=== PATIENT | male | born 1960 | race Caucasian/White ===

== ENCOUNTER 2017-11-18 14:26 | Inpatient (IN) | payer MEDICAID ==
[~2017-11-18] VITALS: Ht 172.7 cm; Wt 171.0 kg
[~2017-11-18 14:26] MED LIST: BACT800T5 PO; CLON1 PO; HYDR-3533 PO; LISI-515 PO; METH10TA PO; PRED20 PO
[2017-11-18 14:41] VITALS: BP 163/80; PULSE 107; RESP 22; O2SAT 96
[2017-11-18] MEDS ORDERED: METH10TA PO (14:44)
--- NOTE | 2017-11-18 15:08 | PD ---
HPI Chief Complaint: Skin Problem Time Seen by Provider: 14:43 Travel History International Travel<30 days: No Contact w/Intl Traveler<30days: No Traveled to known affect area: No History of Present Illness HPI 56yo M presented to the ED for cellulitis of bilateral LE. Pt states that his cellulitis is chronic, with L leg starting about 1 year ago and the R starting several months ago. Pt states the infection worsened a week ago with weeping and increased tenderness. He then started taking antibiotics that his friend had left over from a previous skin infection. He does not know the name of the antibiotic. Pt wraps his wounds daily with Neosporin and gauze. Pt has a significant past medical history of PAD, spinal stenosis, hypertension and arthritis. He denies fevers, chest pain, weakness, myalgias, SOB, nausea or vomiting. Modifying Factors: None Associated Signs & Symptoms: Increased leg swelling worse on the left than the right. Risk Factors: Has been taking antibiotics for a week PFSH Past Medical History Arthritis: Yes (B/L KNEES OA) Asthma: No Blood Disorders: No Heart Rhythm Problems: No Cancer: Yes (skin) Cardiovascular Problems: Yes (PVD LE) High Cholesterol: No Chest Pain: No Congestive Heart Failure: No COPD: No Diminished Hearing: No Endocrine: No Genitourinary: No Hypertension: Yes Immune Disorder: No Musculoskeletal: Yes Neurologic: No Psychiatric: No Reproductive: No Respiratory: No Sleep Apnea: No ?: Not Past Surgical History Body Medical Devices: CRUTCHES Oral Surgery: Yes (TONSILLECTOMY) Tonsillectomy: Yes Other Surgery: Yes Social History Alcohol Use: No (FORMER) Tobacco Use: Yes (CHEW) Substance Use: No Allergies-Medications (Allergen,Severity, Reaction): Coded Allergies: No Known Allergies (Unverified Adverse Reaction, Unknown, 11/18/17) Reported Meds & Prescriptions Reported Meds & Active Scripts Active Reported Methadone (Methadone HCl) 10 Mg Tab 20 Mg PO TID Klonopin (Clonazepam) 1 Mg Tab 1 Mg PO DAILY Prednisone 20 Mg Tab 20 Mg PO DAILY Lisinopril 20 Mg Tab 20 Mg PO DAILY Review of Systems Except as stated in HPI: all other systems reviewed are Neg Cardiovascular: Positive: Edema Skin: Positive Lesions Physical Exam Narrative GENERAL: 56yo W/M obese, well-developed and pleasant. Alert and oriented x3. SKIN: Warm and dry. Bilateral LE are edematous and erythematous to the knee on the R and into the medial thigh on the R. Tenderness to touch. Significant bulla more pronounced on the left. HEAD: Atraumatic. Normocephalic. ENT: No nasal bleeding or discharge. Black growth in R nostril, previously diagnosed as carcinoma of the skin. NECK: Trachea midline. No JVD. CARDIOVASCULAR: Regular rate and rhythm. RESPIRATORY: No accessory muscle use. Clear to auscultation. Breath sounds equal bilaterally. GASTROINTESTINAL: Abdomen soft, non-tender, nondistended. Hepatic and splenic margins not palpable. Increased vasculature marking on anterior abdomen. MUSCULOSKELETAL: Extremities without clubbing or cyanosis. No obvious deformities. NEUROLOGICAL: Awake and alert. No obvious cranial nerve deficits. Motor grossly within normal limits. Normal speech. PSYCHIATRIC: Appropriate mood and affect; insight and judgment normal. Data Data Last Documented VS Vital Signs Date Time Temp Pulse Resp B/P (MAP) Pulse Ox O2 Delivery O2 Flow Rate FiO2 11/18/17 15:23 98 Room Air 11/18/17 15:23 22 11/18/17 14:41 107 Orders Orders Sepsis Workup Initiated (11/18/17 ) Complete Blood Count With Diff (11/18/17 15:00) Comprehensive Metabolic Panel (11/18/17 15:00) Lactic Acid Sepsis Protocol (11/18/17 15:00) Blood Culture (11/18/17 15:00) Chest, Single Ap (11/18/17 15:00) Blood Glucose (11/18/17 15:00) Ecg Monitoring (11/18/17 15:00) Iv Access Insert/Monitor (11/18/17 15:00) Oximetry (11/18/17 15:00) Oxygen Administration (11/18/17 15:00) Ckmb (Isoenzyme) Profile (11/18/17 15:00) Troponin I (11/18/17 15:00) B-Type Natriuretic Peptide (11/18/17 15:00) Prothrombin Time / Inr (Pt) (11/18/17 15:00) Act Partial Throm Time (Ptt) (11/18/17 15:00) Us Leg Venous Doppler Bilat (11/18/17 15:00) CKMB (11/18/17 15:02) CKMB% (11/18/17 15:02) Electrocardiogram (11/18/17 14:46) Piperacil-Tazo 4.5 Gm Premix (Zosyn 4.5 (11/18/17 16:47) Vancomycin Inj (Vancomycin Inj) (11/18/17 16:47) Admit Order (Ed Use Only) (11/18/17 17:14) Labs Laboratory Tests Test 11/18/17 15:02 White Blood Count 13.4 TH/MM3 Red Blood Count 4.15 MIL/MM3 Hemoglobin 12.1 GM/DL Hematocrit 36.6 % Mean Corpuscular Volume 88.1 FL Mean Corpuscular Hemoglobin 29.1 PG Mean Corpuscular Hemoglobin Concent 33.0 % Red Cell Distribution Width 14.3 % Platelet Count 368 TH/MM3 Mean Platelet Volume 7.8 FL Neutrophils (%) (Auto) 84.4 % Lymphocytes (%) (Auto) 11.0 % Monocytes (%) (Auto) 2.7 % Eosinophils (%) (Auto) 0.9 % Basophils (%) (Auto) 1.0 % Neutrophils # (Auto) 11.3 TH/MM3 Lymphocytes # (Auto) 1.5 TH/MM3 Monocytes # (Auto) 0.4 TH/MM3 Eosinophils # (Auto) 0.1 TH/MM3 Basophils # (Auto) 0.1 TH/MM3 CBC Comment AUTO DIFF Differential Comment AUTO DIFF CONFIRMED Prothrombin Time 10.0 SEC Prothromb Time International Ratio 1.0 RATIO Activated Partial Thromboplast Time 23.5 SEC Blood Urea Nitrogen 16 MG/DL Creatinine 1.20 MG/DL Random Glucose 151 MG/DL Total Protein 7.6 GM/DL Albumin 2.7 GM/DL Calcium Level 8.6 MG/DL Alkaline Phosphatase 88 U/L Aspartate Amino Transf (AST/SGOT) 50 U/L Alanine Aminotransferase (ALT/SGPT) 28 U/L Total Bilirubin 0.4 MG/DL Sodium Level 135 MEQ/L Potassium Level 6.3 MEQ/L Chloride Level 102 MEQ/L Carbon Dioxide Level 24.9 MEQ/L Anion Gap 8 MEQ/L Estimat Glomerular Filtration Rate 63 ML/MIN Lactic Acid Level 3.3 mmol/L Total Creatine Kinase 166 U/L Creatine Kinase MB 1.0 NG/ML Troponin I LESS THAN 0.02 NG/ML B-Type Natriuretic Peptide 144 PG/ML MDM Medical Decision Making Medical Screen Exam Complete: Yes Emergency Medical Condition: Yes Medical Record Reviewed: Yes Interpretation(s) Laboratory Tests Test 11/18/17 15:02 White Blood Count 13.4 TH/MM3 (4.0-11.0) Red Blood Count 4.15 MIL/MM3 (4.50-5.90) Hemoglobin 12.1 GM/DL (13.0-17.0) Hematocrit 36.6 % (39.0-51.0) Neutrophils (%) (Auto) 84.4 % (16.0-70.0) Neutrophils # (Auto) 11.3 TH/MM3 (1.8-7.7) Activated Partial Thromboplast Time 23.5 SEC (24.3-30.1) Random Glucose 151 MG/DL (74-106) Albumin 2.7 GM/DL (3.4-5.0) Aspartate Amino Transf (AST/SGOT) 50 U/L (15-37) Sodium Level 135 MEQ/L (136-145) Potassium Level 6.3 MEQ/L (3.5-5.1) Estimat Glomerular Filtration Rate 63 ML/MIN (>89) Lactic Acid Level 3.3 mmol/L (0.4-2.0) Troponin I LESS THAN 0.02 NG/ML B-Type Natriuretic Peptide 144 PG/ML (0-100) Last 24 hours Impressions Lower Extremity Ultrasound 11/18/17 1500 Signed Impressions: Service Date/Time: Saturday, November 18, 2017 15:34 - CONCLUSION: Unremarkable exam with no evidence of deep venous spondylosis. Sahil Sanchez MD Chest X-Ray 11/18/17 1500 Signed Impressions: Service Date/Time: Saturday, November 18, 2017 15:07 - CONCLUSION: No acute disease. Sahil Sanchez MD Differential Diagnosis Cellulitis versus DVT versus CHF Narrative Course Lab work shows significant leukocytosis and lactate elevation is concerning for cellulitis. IV antibiotics were initiated after cultures are drawn. Chest x- ray did not show any signs of acute pulmonary processes. Ultrasound shows no signs of DVT. Case is discussed with Dr. Franco for admission. Diagnosis Primary Impression: Lower extremity cellulitis Admitting Information Admitting Physician Requests: Admit Tonie Darling MD Nov 18, 2017 15:08
--- NOTE | 2017-11-18 15:19 | RADRPT ---
EXAM DATE/TIME: 11/18/2017 15:07 [facility] COMPARISON: No previous studies available for comparison. INDICATIONS : Shortness of breath. Lower extremity swelling. MEDICAL HISTORY : Hypertension. SURGICAL HISTORY : None. ENCOUNTER: Initial ACUITY: 1 day PAIN SCORE: 0/10 LOCATION: Bilateral chest FINDINGS: A single view of the chest demonstrates the lungs to be symmetrically aerated without evidence of mas s, infiltrate or effusion. The cardiomediastinal contours are unremarkable. Osseous structures are intact. CONCLUSION: No acute disease. Sahil Sanchez MD on November 18, 2017 at 15:16 Board Certified Radiologist. This report was verified electronically.
[2017-11-18 15:23] VITALS: RESP 22; O2SAT 98
[2017-11-18 15:52] LABS: AUTOMATED NEUTROPHIL # 11.3 TH/MM3 (1.8-7.7); BASOPHIL # 0.1 TH/MM3 (0-0.2); EOSINOPHIL # 0.1 TH/MM3 (0-0.4); EOSINOPHIL % 0.9 % (0.0-4.0); HEMATOCRIT 36.6 % (39.0-51.0); HEMOGLOBIN 12.1 GM/DL (13.0-17.0); LYMPHOCYTE # 1.5 TH/MM3 (1.0-4.8); MEAN CELL VOLUME 88.1 FL (80.0-100.0); MEAN CORPUSCULAR HEMOGLOBIN 29.1 PG (27.0-34.0); MEAN PLATELET VOLUME 7.8 FL (7.0-11.0); MONO % 2.7 % (0.0-8.0); MONOCYTE # 0.4 TH/MM3 (0-0.9); NEUT % 84.4 % (16.0-70.0); PLATELET COUNT 368 TH/MM3 (150-450); RED BLOOD COUNT 4.15 MIL/MM3 (4.50-5.90); RED CELL DISTRIBUTION WIDTH 14.3 % (11.6-17.2); WHITE BLOOD COUNT 13.4 TH/MM3 (4.0-11.0)
--- NOTE | 2017-11-18 16:09 | RADRPT ---
EXAM DATE/TIME: 11/18/2017 15:34 [facility] COMPARISON: No previous studies available for comparison. INDICATIONS : Bilateral leg swelling. MEDICAL HISTORY : Hypertension. Chronic LE edema/cellulitis. Arthritis. Skin cancer. Osteoarthritis. Peripheral vascu lar disease. SURGICAL HISTORY : Tonsillectomy. ENCOUNTER: Initial ACUITY: >1 year PAIN SCORE: 5/10 LOCATION: Bilateral legs. TECHNIQUE: Venous ultrasound of the left and right leg was performed from the inguinal ligament to the proximal calf. Real-time, color Doppler and spectral tracing, compression and augmentation techniques were us ed. FINDINGS: RIGHT LEG: There is normal compressibility of the deep venous system from the inguinal region to the proximal ca lf. No echogenic clot is seen in the lumen of the common femoral, femoral, popliteal, and posterior tibial veins. There is a normal response of the venous system to proximal and distal augmentation an d respiration. LEFT LEG: There is normal compressibility of the deep venous system from the inguinal region to the proximal ca lf. No echogenic clot is seen in the lumen of the common femoral, femoral, popliteal, and posterior tibial veins. There is a normal response of the venous system to proximal and distal augmentation an d respiration. CONCLUSION: Unremarkable exam with no evidence of deep venous spondylosis. Sahil Sanchez MD on November 18, 2017 at 16:05 Board Certified Radiologist. This report was verified electronically.
[2017-11-18 16:15] LABS: ALBUMIN 2.7 GM/DL (3.4-5.0); ALKALINE PHOSPHATASE 88 U/L (45-117); ALT (GPT) 28 U/L (12-78); AST (GOT) 50 U/L (15-37); BICARBONATE 24.9 MEQ/L (21.0-32.0); BLOOD UREA NITROGEN 16 MG/DL (7-18); CALCIUM 8.6 MG/DL (8.5-10.1); CHLORIDE 102 MEQ/L (98-107); GLOMERULAR FILTRATION RATE 63 ML/MIN (>89); GLUCOSE,RANDOM 151 MG/DL (74-106); LACTIC ACID SEPSIS PROTOCOL 3.3 mmol/L (0.4-2.0); SODIUM (NA) 135 MEQ/L (136-145); TOTAL BILIRUBIN ADULT 0.4 MG/DL (0.2-1.0); TOTAL PROTEIN 7.6 GM/DL (6.4-8.2); TROPONIN I LESS THAN 0.02 NG/ML (0.02-0.05)
[2017-11-18] MEDS ORDERED: VANCOMYCIN INJ 1,000 MG in SODIUM CHLOR 0.9% 250 ML INJ 250 ML IV STA (16:47)
[2017-11-18] MEDS ORDERED: PIPERACIL-TAZO 4.5 GM PREMIX 100 ML IV STA (16:47)
--- NOTE | 2017-11-18 18:21 | HHI.HP ---
[facility] Service Family Medicine Primary Care Physician Yossi Forrester, DO Admission Diagnosis left leg cellulitis/sepsis Diagnoses: International Travel<30 Days: No Contact w/Intl Traveler<30days: No Known Affected Area: No History of Present Illness Patient is a 56 year old male with a past medical history of hypertension, chronic venous stasis in his lower extremities, and knee osteoarthritis that presents to the [facility] ED for evaluation of chronic bilateral lower extremity cellulitis. Patient states that in the last 1 week, his leg started hurting to the point that he could hardly get up from the couch to use the bathroom. His PCP is Dr. Forrester who he last saw last month. At that time, he was told to apply Neosporin with dressing changes twice a day which did not improve the pain or swelling in his legs. He is experiencing excruciating sharp, burning, and sitting in pain that he rates 10/10. He even took antibiotics that a friend had left over from a previous skin infection but that did not help. He came into the ED to be evaluated because he could not bear the pain any longer. He does not have a history of diabetes. His insurance did not approve follow-up with the wound care clinic. (Shannon Quinones MD R2) Review of Systems Constitutional: COMPLAINS OF: Fever (probably), Chills, DENIES: Fatigue, Dizziness, Change in appetite, Night Sweats Eyes: DENIES: Blurred vision Ears, nose, mouth, throat: DENIES: Nasal discharge, Throat pain, Sinus Pain Respiratory: DENIES: Cough, Shortness of breath Cardiovascular: DENIES: Chest pain, Palpitations Gastrointestinal: DENIES: Abdominal pain, Bloody stools, Diarrhea, Nausea, Vomiting, Difficulty Swallowing Genitourinary: DENIES: Urinary frequency, Dysuria Integumentary: DENIES: Pruritus Neurologic: DENIES: Headache (for the past few days but resolved) Psychiatric: DENIES: Anxiety, Confusion, Depression, Suicidal Ideation, Homicidal Ideation (Shannon Quinones MD R2) Past Family Social History Past Medical History Spinal stenosis Arthritis - in the knees bilaterally Hypertension Carpal tunnel Poor circulation in lower legs Past Surgical History Tonsillectomy at 17 years of age Reported Medications Reported Meds & Active Scripts Active Reported Methadone (Methadone HCl) 10 Mg Tab 20 Mg PO TID Klonopin (Clonazepam) 1 Mg Tab 1 Mg PO DAILY Prednisone 20 Mg Tab 20 Mg PO DAILY Lisinopril 20 Mg Tab 20 Mg PO DAILY (Shannon Quinones MD R2) Allergies: Coded Allergies: No Known Allergies (Unverified Adverse Reaction, Unknown, 11/18/17) Family History Mother of COPD Father was healthy, of an infection due to surgery Social History 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 Lives in [place], lives with ex-, a female roommate, and older son Non-smoker No alcohol use No illicit drugs Pt chews tobacco (Shannon Quinones MD R2) Physical Exam Vital Signs Vital Signs Date Time Temp Pulse Resp B/P (MAP) Pulse Ox O2 Delivery O2 Flow Rate FiO2 11/18/17 15:23 98 Room Air 11/18/17 15:23 22 98 Room Air 11/18/17 14:41 107 22 163/80 (107) 96 Room Air Physical Exam GENERAL: This is a well-nourished, well-developed patient, morbidly obese patient in no physical distress, moaning constantly in the exam room SKIN: Obvious swelling of bilateral lower extremities, worse on left with erythema, brawny induration, and tenderness to palpation in the middle third of the lower leg. 5 x 7 cm ulcer on the lateral posterior area of the left leg. Superficial ulcer, 5 cm in widest dimension on the posterior medial right leg. Bullae formation filled with fluid on the left leg. Drainage noted oozing from both ulcers, worse on the left. Healed 0.4 cm ulcer with black scarring observed in the mid-medial left leg. Dry skin noted on feet and toes. HEAD: Atraumatic. Normocephalic. No temporal or scalp tenderness. EYES: Pupils equal round and reactive. Extraocular motions intact. No scleral icterus. No injection or drainage. ENT: Black, 0.3cm, cauliflower lesion in the right nostril, consistent with SCC of the skin. Throat without erythema, tonsillar hypertrophy or exudate. Uvula midline. Airway patent. NECK: Trachea midline. No JVD. Supple, nontender, no meningeal signs. CARDIOVASCULAR: Regular rate and rhythm without murmurs, gallops, or rubs. Palpable dorsalis pedis pulses bilaterally RESPIRATORY: Clear to auscultation. Breath sounds equal bilaterally. No wheezes , rales, or rhonchi. GASTROINTESTINAL: Abdomen soft, obese, non-tender, nondistended. No guarding. MUSCULOSKELETAL: Extremities without clubbing, cyanosis, or edema. No joint tenderness, effusion, or edema noted. No calf tenderness. Negative Homans sign bilaterally. NEUROLOGICAL: Awake and alert. Cranial nerves II through XII intact. Motor and sensory grossly within normal limits. Five out of 5 muscle strength in bilateral upper and lower extremities. Normal speech. Laboratory Laboratory Tests Test 11/18/17 15:02 White Blood Count 13.4 Red Blood Count 4.15 Hemoglobin 12.1 Hematocrit 36.6 Mean Corpuscular Volume 88.1 Mean Corpuscular Hemoglobin 29.1 Mean Corpuscular Hemoglobin Concent 33.0 Red Cell Distribution Width 14.3 Platelet Count 368 Mean Platelet Volume 7.8 Neutrophils (%) (Auto) 84.4 Lymphocytes (%) (Auto) 11.0 Monocytes (%) (Auto) 2.7 Eosinophils (%) (Auto) 0.9 Basophils (%) (Auto) 1.0 Neutrophils # (Auto) 11.3 Lymphocytes # (Auto) 1.5 Monocytes # (Auto) 0.4 Eosinophils # (Auto) 0.1 Basophils # (Auto) 0.1 CBC Comment AUTO DIFF Differential Comment AUTO DIFF CONFIRMED Prothrombin Time 10.0 Prothromb Time International Ratio 1.0 Activated Partial Thromboplast Time 23.5 Blood Urea Nitrogen 16 Creatinine 1.20 Random Glucose 151 Total Protein 7.6 Albumin 2.7 Calcium Level 8.6 Alkaline Phosphatase 88 Aspartate Amino Transf (AST/SGOT) 50 Alanine Aminotransferase (ALT/SGPT) 28 Total Bilirubin 0.4 Sodium Level 135 Potassium Level 6.3 Chloride Level 102 Carbon Dioxide Level 24.9 Anion Gap 8 Estimat Glomerular Filtration Rate 63 Lactic Acid Level 3.3 Total Creatine Kinase 166 Creatine Kinase MB 1.0 Troponin I LESS THAN 0.02 B-Type Natriuretic Peptide 144 Date/Time Source Procedure Growth Status 11/18/17 15:12 Blood Peripheral Aerobic Blood Culture Pending Received 11/18/17 15:12 Blood Peripheral Anaerobic Blood Culture Pending Received (RodrioShannon MD R2) Result Diagram: 11/18/17 1502 11/18/17 1502 Imaging Last Impressions Lower Extremity Ultrasound 11/18/17 1500 Signed Impressions: Service Date/Time: Saturday, November 18, 2017 15:34 - CONCLUSION: Unremarkable exam with no evidence of deep venous spondylosis. Sahil Sanchez MD Chest X-Ray 11/18/17 1500 Signed Impressions: Service Date/Time: Saturday, November 18, 2017 15:07 - CONCLUSION: No acute disease. Sahil Sanchez MD (Shannon Quinones MD R2) Caprini VTE Risk Assessment Caprini VTE Risk Assessment: Mod/High Risk (score >= 2) VTE [facility] Contraindication: LE injury/wound Caprini Risk Assessment Model Point Value = 1 Point Value = 2 Point Value = 3 Point Value = 5 Age 41-60 Minor surgery BMI > 25 kg/m2 Swollen legs Varicose veins or History of unexplained or recurrent spontaneous Oral contraceptives or hormone replacement Sepsis (< 1 month) Serious lung disease, including pneumonia (< 1 month) Abnormal pulmonary function Acute myocardial infarction Congestive heart failure (< 1 month) History of inflammatory bowel disease Medical patient at bed rest Age 61-74 Arthroscopic surgery Major open surgery (> 45 min) Laparoscopic surgery (> 45 min) Malignancy Confined to bed (> 72 hours) Immobilizing plaster cast Central venous access Age >= 75 History of VTE Family history of VTE Factor V Leiden Prothrombin [id number] Lupus anticoagulant Anticardiolipin antibodies Elevated serum homocysteine Heparin-induced thrombocytopenia Other congenital or acquired thrombophilia Stroke (< 1 month) Elective arthroplasty Hip, pelvis, or leg fracture Acute spinal cord injury (< 1 month) Prophylaxis Regimen Total Risk Factor Score Risk Level Prophylaxis Regimen 0-1 Low Early ambulation 2 Moderate Order ONE of the following: *Sequential Compression Device (SCD) *Heparin 5000 units SQ BID 3-4 Higher Order ONE of the following medications: *Heparin 5000 units SQ TID *Enoxaparin/Lovenox 40 mg SQ daily (WT < 150 kg, CrCl > 30 mL/min) *Enoxaparin/Lovenox 30 mg SQ daily (WT < 150 kg, CrCl > 10-29 mL/min) *Enoxaparin/Lovenox 30 mg SQ BID (WT < 150 kg, CrCl > 30 mL/min) AND/OR *Sequential Compression Device (SCD) 5 or more Highest Order ONE of the following medications: *Heparin 5000 units SQ TID (Preferred with Epidurals) *Enoxaparin/Lovenox 40 mg SQ daily (WT < 150 kg, CrCl > 30 mL/min) *Enoxaparin/Lovenox 30 mg SQ daily (WT < 150 kg, CrCl > 10-29 mL/min) *Enoxaparin/Lovenox 30 mg SQ BID (WT < 150 kg, CrCl > 30 mL/min) AND *Sequential Compression Device (SCD) (Shannon Quinones MD R2) Assessment and Plan Assessment and Plan 56 year old male presents with acute on chronic bilateral lower extremity cellulitis, worse on the left. He will be admitted for management with IV antibiotics, fluids and pain control. Podiatry has been consulted to assist with management. -Met sepsis criteria on admission with a pulse of 107 and elevated WBC of 13.4 -Sepsis workup initiated: Negative chest x-ray, urinalysis not indicative of infection -Blood cultures pending, expect wound cultures from debrided specimen -Vancomycin 1750 mg every 12 hours IV, pharmacy to assist with dosing, clindamycin 600 mg every 8 hours IV, Zosyn 4.5 mg every 6 hours IV -Pain management with [place] and Dilaudid 1 mg IV for breakthrough pain, Toradol 30 mg every 6 hours IV when necessary for inflammation -Zofran for nausea/vomiting as needed -Podiatry consult -Wound care consult -Ultrasound of right lower extremity - no evidence of deep vein thrombosis -Extent of cellulitis marked for progression/regression -Will continue to monitor -Neuro checks, vitals 4 hours, out of bed with assistance, monitor I's and O's Chronic Back Pain and Arthritis: -Will continue home dose of Methadone Hypertension: -Continue home dose, will monitor for changes Depression: -Continue clonazepam 1 mg by mouth daily FEN/GI: IV fluids as above, nothing by mouth after midnight with by mouth if necessary for procedure. Monitor electrolytes and replete as needed. Deanna- Colace for constipation prophylaxis PPx: Lovenox 40mg subcu daily. Respiratory incentive spirometer to prevent atelectasis. Tylenol for fever Dispo: Discharge is pending sepsis work-up, clinical improvement, and podiatry recommendations. PT to assist with ambulation. Case management to assist with discharge needs. Code Status Full code Discussed Condition With Will discuss with Dr. Gardiner (Shannon Quinones MD R2) Attending Attestation The patient has been seen and examined. The chart and all resident notes have been reviewed. I agree that inpatient care is appropriate and that a two midnight stay is expected for the reasons documented in the resident history and physical. I have discussed this with the resident and certify the resident s order for inpatient admission. (Camila Gardiner MD) Problem List: (1) Sepsis ICD Codes: A41.9 - Sepsis, unspecified organism (2) Lower extremity cellulitis ICD Codes: L03.119 - Lower extremity cellulitis Status: Acute (3) Osteoarthritis of knees, bilateral ICD Codes: M17.0 - Bilateral primary osteoarthritis of knee (4) Chronic venous stasis dermatitis ICD Codes: I87.2 - Venous insufficiency (chronic) (peripheral) (Shannon Quinnoes MD R2) Physician Certification 2 Midnight Certification Type: Admission for Inpatient Services Order for Inpatient Services The services are ordered in accordance with Medicare regulations or non- Medicare payer requirements, as applicable. In the case of services not specified as inpatient-only, they are appropriately provided as inpatient services in accordance with the 2-midnight benchmark. Estimated LOS (days): 3 days is the estimated time the patient will need to remain in the hospital, assuming treatment plan goals are met and no additional complications. Post-Hospital Plan: Home (Shannon Quinones MD R2) Shannon Quinones MD R2 Nov 18, 2017 18:21 Camila Gardiner MD Nov 19, 2017 08:05
[2017-11-18] MEDS ORDERED: KETOROLAC TROMETHAMINE 30 MG/ML (IVP) VIAL IVP PRN (19:15)
[2017-11-18] MEDS ORDERED: HYDROmorphone HCL PF 2 MG/ML VIAL IV PRN (19:15)
[2017-11-18] MEDS ORDERED: ONDANSETRON HCL 4 MG/2 ML VIAL IVP PRN (19:15)
[2017-11-18] MEDS ORDERED: NALOXONE HCL 0.4 MG/ML AMP IV PUSH PRN (19:15)
[2017-11-18] MEDS ORDERED: ACETAMINOPHEN/HYDROcodone 325 MG/5 MG TAB PO PRN (19:15)
[2017-11-18] MEDS ORDERED: ACETAMINOPHEN 325 MG TAB PO PRN (19:15)
[2017-11-18] MEDS ORDERED: Vancomycin Consult Pharmacy 1 EA OTHER SCH (19:15)
[2017-11-18] MEDS ORDERED: hydrALAZINE HCL 10 MG TAB PO PRN (19:30)
[2017-11-18 20:00] VITALS: BP 138/69; PULSE 61; RESP 20; TEMP 97.7; O2SAT 96
[2017-11-18] MEDS ORDERED: CLINDAMYCIN 600 MG/NS PREMIX 50 ML IV SCH (20:00)
[2017-11-18 20:16] LABS: C-REACTIVE PROTEIN 2.1 MG/DL (0.00-0.30); MAGNESIUM 2.2 MG/DL (1.5-2.5); PHOSPHORUS 3.5 MG/DL (2.5-4.9)
--- NOTE | 2017-11-18 21:30 | PD.CONS ---
History of Present Illness Service Foot and ankle surgery/podiatry Consult Requested By Dr. Covington Reason for Consult Bilateral lower extremity cellulitis, bilateral lower extremity venous leg ulcers Primary Care Physician Yossi Forrester DO Diagnoses: History of Present Illness Podiatry consultation for a 56-year-old male with past medical history of spinal stenosis, arthritis in bilateral knees, hypertension, carpal tunnel syndrome and a history of venous leg ulcers with poor circulation and bilateral lower extremity with bilateral lower extremity venous leg ulcers with associated cellulitis. Patient states he does not follow up with the automotive designer as his insurance is not taken any automotive designer in the area per him. Patient states he tries to treat the ulcers at home with a nonstick gauze and Akash bandages however he noticed increased swelling and redness over the past few days. He reports pain to bilateral lower extremity. Denies any nausea vomiting fevers or chills. Would like to know who takes care of his discharge pain medications. Review of Systems Constitutional: DENIES: Fatigue, Fever Eyes: DENIES: Blurred vision Respiratory: DENIES: Cough, Shortness of breath Cardiovascular: DENIES: Chest pain Musculoskeletal: DENIES: Joint pain Integumentary: COMPLAINS OF: Abnormal pigmentation Psychiatric: DENIES: Anxiety, Confusion Past Family Social History Allergies: Coded Allergies: No Known Allergies (Unverified Adverse Reaction, Unknown, 11/18/17) Past Medical History As reported in the history of present illness Physical Exam Vital Signs Vital Signs Date Time Temp Pulse Resp B/P (MAP) Pulse Ox O2 Delivery O2 Flow Rate FiO2 11/18/17 19:42 11/18/17 15:23 98 Room Air 11/18/17 15:23 22 98 Room Air 11/18/17 14:41 107 22 163/80 (107) 96 Room Air Physical Exam GENERAL: This is a well-nourished, well-developed patient, in no apparent distress. SKIN: Bilateral lower extremity ulcers associated cellulitis. HEAD: Atraumatic. Normocephalic. . EYES: Pupils equal round and reactive. ENT: Lesion noted to the right nasal fold. Airway patent. RESPIRATORY: Unlabored breathing MUSCULOSKELETAL:. No joint tenderness. NEUROLOGICAL: Awake and alert. Normal speech. Lower extremity physical exam: Vascular: Dorsalis pedis nonpalpable secondary to edema, posterior tibial nonpalpable secondary to edema. Capillary refill time within normal limits to digits 5 bilateral foot. Edema present bilateral foot and ankle. Neuro: Gross sensation intact to bilateral lower extremity. Pinpoint sensation decreased. No hyperalgesia noted to bilateral lower extremity Dermatology: Erythema noted to bilateral lower extremity. Brawny induration noted to bilateral lower extremity. Venous stasis dermatitis noted to bilateral lower extremity. Right leg lateral venous stasis wound measuring approximately 3 cm x 4 cm with 0.1 depth. Anterior medial venous leg wound with a sharp present measuring approximately 2 cm x 2 cm 0.1 depth. Left lower extremity medial and lateral venous leg wounds each measuring 4 cm x 4 cm with 0.1 depth. Weeping drainage noted to bilateral lower extremity left greater than right. Musculoskeletal: Tender to palpation to bilateral lower extremities at ulcer locations. No decrease in bilateral medial longitudinal arch. No gross deformities noted. Laboratory Laboratory Tests Test 11/18/17 15:02 11/18/17 18:56 11/18/17 19:40 White Blood Count 13.4 Red Blood Count 4.15 Hemoglobin 12.1 Hematocrit 36.6 Mean Corpuscular Volume 88.1 Mean Corpuscular Hemoglobin 29.1 Mean Corpuscular Hemoglobin Concent 33.0 Red Cell Distribution Width 14.3 Platelet Count 368 Mean Platelet Volume 7.8 Neutrophils (%) (Auto) 84.4 Lymphocytes (%) (Auto) 11.0 Monocytes (%) (Auto) 2.7 Eosinophils (%) (Auto) 0.9 Basophils (%) (Auto) 1.0 Neutrophils # (Auto) 11.3 Lymphocytes # (Auto) 1.5 Monocytes # (Auto) 0.4 Eosinophils # (Auto) 0.1 Basophils # (Auto) 0.1 CBC Comment AUTO DIFF Differential Comment AUTO DIFF CONFIRMED Erythrocyte Sedimentation Rate 50 Prothrombin Time 10.0 Prothromb Time International Ratio 1.0 Activated Partial Thromboplast Time 23.5 Blood Urea Nitrogen 16 Creatinine 1.20 Random Glucose 151 Total Protein 7.6 Albumin 2.7 Calcium Level 8.6 Alkaline Phosphatase 88 Aspartate Amino Transf (AST/SGOT) 50 Alanine Aminotransferase (ALT/SGPT) 28 Total Bilirubin 0.4 Sodium Level 135 Potassium Level 6.3 4.8 Chloride Level 102 Carbon Dioxide Level 24.9 Anion Gap 8 Estimat Glomerular Filtration Rate 63 Lactic Acid Level 3.3 2.1 Total Creatine Kinase 166 Creatine Kinase MB 1.0 Troponin I LESS THAN 0.02 B-Type Natriuretic Peptide 144 Phosphorus Level 3.5 Magnesium Level 2.2 C-Reactive Protein 2.10 Date/Time Source Procedure Growth Status 11/18/17 15:12 Blood Peripheral Aerobic Blood Culture Pending Received 11/18/17 15:12 Blood Peripheral Anaerobic Blood Culture Pending Received Result Diagram: 11/18/17 1502 11/18/17 1940 Imaging Last Impressions Lower Extremity Ultrasound 11/18/17 1500 Signed Impressions: Service Date/Time: Saturday, November 18, 2017 15:34 - CONCLUSION: Unremarkable exam with no evidence of deep venous spondylosis. Sahil Sanchez MD Chest X-Ray 11/18/17 1500 Signed Impressions: Service Date/Time: Saturday, November 18, 2017 15:07 - CONCLUSION: No acute disease. Sahil Sanchez MD Assessment and Plan Assessment and Plan A 56-year-old male with bilateral lower extremity venous stasis ulcers with associated cellulitis Patient evaluated and examined with all questions answered Bilateral lower extremities dressed with Aquacel and absorbent dressing with Akash bandages 2 to each leg for compression Continued daily dressing changes with wound care recommended Will evaluate tomorrow and place wound care orders Will monitor progression of cellulitis Possible bedside debridement of venous leg ulcers tomorrow, will place orders Podiatry will continue to follow Yenny Power DPM Nov 18, 2017 21:30
[2017-11-18] MEDS: ACETAMINOPHEN/HYDROcodone 325 MG/7.5 MG TAB PO PRN (21:33)
[2017-11-18] MEDS: ENOXAPARIN SODIUM 40 MG/0.4 ML SYRINGE SQ SCH (21:34)
[2017-11-18] MEDS: DOCUSATE SODIUM 50 MG/SENNA 8.6 MG TAB PO SCH (21:34)
[2017-11-18] MEDS: SODIUM CHLOR 0.9% 1000 ML INJ 1,000 ML IV SCH (21:34)
[2017-11-18 21:35] VITALS: PULSE 64
[2017-11-18 22:32] LABS: BILIRUBIN, URINE NEG (NEG); BLOOD, URINE NEG (NEG); GLUCOSE,URINE NEG (NEG); KETONE, URINE NEG (NEG); NITRITE,URINE NEG (NEG); PH, URINE 5.5 (5.0-8.5); URINE COLOR LIGHT-YELLOW (YELLW/STRAW); URINE LEUKOCYTE ESTERASE NEG (NEG)
[2017-11-18] MEDS: PIPERACIL-TAZO 4.5 GM PREMIX 100 ML IV SCH (23:18)
[2017-11-19] VITALS (12 sets, daily range): BP systolic 118–140; BP diastolic 64–78; PULSE 62–79; RESP 20–21; TEMP 97.4–98.2; O2SAT 93–97
[2017-11-19] MEDS: SODIUM CHLOR 0.9% 1000 ML INJ 1,000 ML IV SCH ×5 (01:00→20:36)
[2017-11-19] MEDS: VANCOMYCIN INJ 1,750 MG in SODIUM CHLORID 0.9% 500 ML INJ 500 ML IV SCH ×2 (02:14→13:09)
[2017-11-19] MEDS: ACETAMINOPHEN/HYDROcodone 325 MG/7.5 MG TAB PO PRN ×2 (04:46→22:36)
[2017-11-19 05:02] LABS: BASOPHIL # 0.2 TH/MM3 (0-0.2); BASOPHIL % 1.1 % (0.0-2.0); EOSINOPHIL # 0.4 TH/MM3 (0-0.4); EOSINOPHIL % 3.4 % (0.0-4.0); HEMATOCRIT 31.3 % (39.0-51.0); HEMOGLOBIN 10.3 GM/DL (13.0-17.0); LYMPH % 21.8 % (9.0-44.0); LYMPHOCYTE # 2.9 TH/MM3 (1.0-4.8); MEAN CELL VOLUME 87.3 FL (80.0-100.0); MEAN CORPUSCULAR HEMOGLOBIN 28.8 PG (27.0-34.0); MEAN PLATELET VOLUME 7.3 FL (7.0-11.0); MONO % 5.7 % (0.0-8.0); MONOCYTE # 0.8 TH/MM3 (0-0.9); PLATELET COUNT 341 TH/MM3 (150-450); RED BLOOD COUNT 3.59 MIL/MM3 (4.50-5.90); RED CELL DISTRIBUTION WIDTH 14.2 % (11.6-17.2); WHITE BLOOD COUNT 13.2 TH/MM3 (4.0-11.0)
[2017-11-19 05:07] LABS: ALBUMIN 2.3 GM/DL (3.4-5.0); AST (GOT) 11 U/L (15-37); BICARBONATE 27.5 MEQ/L (21.0-32.0); BLOOD UREA NITROGEN 15 MG/DL (7-18); CALCIUM 8.1 MG/DL (8.5-10.1); CHLORIDE 106 MEQ/L (98-107); CREATININE 1.14 MG/DL (0.60-1.30); GLOMERULAR FILTRATION RATE 66 ML/MIN (>89); GLUCOSE,RANDOM 80 MG/DL (74-106); SODIUM (NA) 139 MEQ/L (136-145)
[2017-11-19 05:08] LABS: ALT (GPT) 21 U/L (12-78)
[2017-11-19 05:10] LABS: ALKALINE PHOSPHATASE 68 U/L (45-117); TOTAL BILIRUBIN ADULT 0.1 MG/DL (0.2-1.0)
[2017-11-19] MEDS: PIPERACIL-TAZO 4.5 GM PREMIX 100 ML IV SCH ×3 (05:43→17:32)
[2017-11-19] MEDS ORDERED: VANCOMYCIN INJ 1,500 MG in SODIUM CHLORID 0.9% 500 ML INJ 500 ML IV SCH (06:15)
[2017-11-19 06:29] LABS: BANDS 2 % (0-6); LYMPHOCYTES 19 % (9-44); METAMYELOCYTES 5 % (0-1); MONOCYTES 5 % (0-8); NEUTROPHIL # MANUAL DIFF 9.8 TH/MM3 (1.8-7.7); POLYS (SEG NEUTROPHILS) 67 % (16-70)
[2017-11-19] MEDS: CLINDAMYCIN 600 MG/NS PREMIX 50 ML IV SCH ×3 (08:00→15:06)
--- NOTE | 2017-11-19 08:04 | HHI.FPPN ---
Subjective Subjective Patient seen and examined with the resident team this am. Case reviewed and discussed Please refer to resident H&P for further details regarding HPI, ROS, PMH, SurgHx , FH and SocHx In summary, patient is a 56yoM with a history of recurrent venous stasis ulcers presenting for worsening LE edema and pain for one week duration. Patient endorses a burning pain rated 10/10 without pain medication. He reports inability to follow-up with wound care clinic due to financial challenges. He denies any fevers, chills. [facility] Objective Objective Last Impressions Lower Extremity Ultrasound 11/18/17 1500 Signed Impressions: Service Date/Time: Saturday, November 18, 2017 15:34 - CONCLUSION: Unremarkable exam with no evidence of deep venous spondylosis. Sahil Sanchez MD Chest X-Ray 11/18/17 1500 Signed Impressions: Service Date/Time: Saturday, November 18, 2017 15:07 - CONCLUSION: No acute disease. Sahil Sanchez MD Laboratory Tests - Abnormals Test 11/18/17 15:02 11/18/17 18:56 11/18/17 19:40 11/18/17 20:00 White Blood Count 13.4 TH/MM3 Red Blood Count 4.15 MIL/MM3 Hemoglobin 12.1 GM/DL Hematocrit 36.6 % Neutrophils (%) (Auto) 84.4 % Neutrophils # (Auto) 11.3 TH/MM3 Erythrocyte Sedimentation Rate 50 mm/hr Activated Partial Thromboplast Time 23.5 SEC Random Glucose 151 MG/DL Albumin 2.7 GM/DL Aspartate Amino Transf (AST/SGOT) 50 U/L Sodium Level 135 MEQ/L Potassium Level 6.3 MEQ/L Estimat Glomerular Filtration Rate 63 ML/MIN Lactic Acid Level 3.3 mmol/L 2.1 mmol/L Troponin I LESS THAN 0.02 NG/ML B-Type Natriuretic Peptide 144 PG/ML C-Reactive Protein 2.10 MG/DL Urine Opiates Screen POS Urine Benzodiazepines Screen POS Test 11/19/17 04:45 White Blood Count 13.2 TH/MM3 Red Blood Count 3.59 MIL/MM3 Hemoglobin 10.3 GM/DL Hematocrit 31.3 % Neutrophils # (Auto) 9.0 TH/MM3 Neutrophils # (Manual) 9.8 TH/MM3 Metamyelocytes 5 % Total Protein 6.0 GM/DL Albumin 2.3 GM/DL Calcium Level 8.1 MG/DL Aspartate Amino Transf (AST/SGOT) 11 U/L Total Bilirubin 0.1 MG/DL Estimat Glomerular Filtration Rate 66 ML/MIN Vital Signs 11/18/17 11/18/17 11/18/17 11/18/17 14:41 15:23 15:23 19:42 Pulse 107 Resp 22 22 B/P (MAP) 163/80 (107) Pulse Ox 96 98 98 O2 Delivery Room Air Room Air Room Air 11/18/17 11/18/17 11/18/17 11/19/17 20:00 20:00 21:35 00:00 Temp 97.7 98.2 Pulse 61 64 73 Resp 20 20 B/P (MAP) 138/69 (92) 140/78 (98) Pulse Ox 96 97 O2 Delivery Room Air 11/19/17 11/19/17 11/19/17 00:00 03:54 04:00 Temp 98.2 Pulse 66 64 Resp 20 B/P (MAP) 118/72 (87) Pulse Ox 95 O2 Delivery Room Air Physical exam GENERAL: Obese male, resting in bed. NAD SKIN: Warm and dry. Venous stasis changes LE bilaterally. There are scattered erythematous papules over abdomen from scratching. R nare with ulcerated skin lesion suspicious for SCC which patient is getting worked up as an outpatient. HEAD: Normocephalic. AT EYES: No scleral icterus. No injection or drainage. ENT: Nose as above. MM dry. NECK: Supple, trachea midline. No JVD or lymphadenopathy. CARDIOVASCULAR: Regular rate and rhythm without murmurs, gallops, or rubs. RESPIRATORY: Breath sounds equal bilaterally. No accessory muscle use. GASTROINTESTINAL: Abdomen soft, non-tender, nondistended. MUSCULOSKELETAL: No cyanosis. There is edema L>R to distal to the knee. Bilateral lower extremities with erythema and venous stasis dermatitis with bullae. RLE lateral venous stasis wound approximately 3 cm x 4 cm, medial venous leg ulcer approximately 2 cm x 2 cm. LLE with medial and lateral venous leg wounds about 4 cm x 4 cm. Wounds are weeping with surrounding cellulitis. BACK: Nontender without obvious deformity. No CVA tenderness. NEURO: Awake and alert. Normal speech. CN grossly intact. Assessment Assessment Sepsis due to Cellulitis Bilateral venous stasis ulcers Leukocytosis (patient on chronic steroids) Chronic pain on methadone Spinal stenosis Osteoarthritis Hypertension Carpal tunnel PLAN PLAN Empiric antibiotic therapy Infectious disease and podiatry consultations Podiatry to debride at bedside today Pain control PT Wound care consult cbc, blood cultures, trend CRP, ESR, lactic acid Resume htn medications Lovenox post-operatively/post-debridement Patient seen and examined. Case reviewed and discussed Agree with plan of care as discussed with me and documented in the resident note. Camila Gardiner MD Nov 19, 2017 08:04
[2017-11-19] MEDS: METHADONE HCL 10 MG TAB PO SCH ×3 (08:39→17:31)
[2017-11-19] MEDS: DOCUSATE SODIUM 50 MG/SENNA 8.6 MG TAB PO SCH ×2 (08:40→20:35)
[2017-11-19] MEDS: predniSONE 20 MG TAB PO SCH (08:40)
[2017-11-19] MEDS: clonazePAM 1 MG TAB PO SCH (08:40)
[2017-11-19] MEDS ORDERED: METHADONE HCL 10 MG TAB PO PRN (08:45)
--- NOTE | 2017-11-19 16:02 | HHI.PR ---
Subjective Remarks Patient seen at bedside this afternoon. Reports no nausea, vomiting, fevers, or chills. Patient states he has decreased pain to bilateral lower extremity. States he feels the wraps done last night really helped him. Objective Vital Signs Date Time Temp Pulse Resp B/P (MAP) Pulse Ox O2 Delivery O2 Flow Rate FiO2 11/19/17 12:39 78 11/19/17 12:06 97.6 68 21 132/64 (86) 93 11/19/17 08:06 97.4 66 21 124/76 (92) 93 11/19/17 08:00 62 11/19/17 04:00 98.2 64 20 118/72 (87) 95 11/19/17 03:54 66 11/19/17 00:00 Room Air 11/19/17 00:00 98.2 73 20 140/78 (98) 97 11/18/17 21:35 64 11/18/17 20:00 97.7 61 20 138/69 (92) 96 11/18/17 20:00 Room Air 11/18/17 19:42 I/O 11/18/17 11/18/17 11/18/17 11/19/17 11/19/17 11/19/17 07:00 15:00 23:00 07:00 15:00 23:00 Intake Total 350 ml 2010 ml Balance 350 ml 2010 ml Intake Oral 240 ml IV Total 350 ml 1770 ml # Voids 2 # Bowel Movements 0 Result Diagram: 11/19/17 0445 11/19/17 0445 Imaging Last Impressions Lower Extremity Ultrasound 11/18/17 1500 Signed Impressions: Service Date/Time: Saturday, November 18, 2017 15:34 - CONCLUSION: Unremarkable exam with no evidence of deep venous spondylosis. Sahil Sanchez MD Chest X-Ray 11/18/17 1500 Signed Impressions: Service Date/Time: Saturday, November 18, 2017 15:07 - CONCLUSION: No acute disease. Sahil Sanchez MD Other Results Laboratory Tests Test 11/18/17 15:02 11/18/17 18:56 11/18/17 19:40 11/18/17 20:00 White Blood Count 13.4 TH/MM3 Red Blood Count 4.15 MIL/MM3 Hemoglobin 12.1 GM/DL Hematocrit 36.6 % Mean Corpuscular Volume 88.1 FL Mean Corpuscular Hemoglobin 29.1 PG Mean Corpuscular Hemoglobin Concent 33.0 % Red Cell Distribution Width 14.3 % Platelet Count 368 TH/MM3 Mean Platelet Volume 7.8 FL Neutrophils (%) (Auto) 84.4 % Lymphocytes (%) (Auto) 11.0 % Monocytes (%) (Auto) 2.7 % Eosinophils (%) (Auto) 0.9 % Basophils (%) (Auto) 1.0 % Neutrophils # (Auto) 11.3 TH/MM3 Lymphocytes # (Auto) 1.5 TH/MM3 Monocytes # (Auto) 0.4 TH/MM3 Eosinophils # (Auto) 0.1 TH/MM3 Basophils # (Auto) 0.1 TH/MM3 CBC Comment AUTO DIFF Differential Comment AUTO DIFF CONFIRMED Erythrocyte Sedimentation Rate 50 mm/hr Prothrombin Time 10.0 SEC Prothromb Time International Ratio 1.0 RATIO Activated Partial Thromboplast Time 23.5 SEC Blood Urea Nitrogen 16 MG/DL Creatinine 1.20 MG/DL Random Glucose 151 MG/DL Total Protein 7.6 GM/DL Albumin 2.7 GM/DL Calcium Level 8.6 MG/DL Alkaline Phosphatase 88 U/L Aspartate Amino Transf (AST/SGOT) 50 U/L Alanine Aminotransferase (ALT/SGPT) 28 U/L Total Bilirubin 0.4 MG/DL Sodium Level 135 MEQ/L Potassium Level 6.3 MEQ/L 4.8 MEQ/L Chloride Level 102 MEQ/L Carbon Dioxide Level 24.9 MEQ/L Anion Gap 8 MEQ/L Estimat Glomerular Filtration Rate 63 ML/MIN Lactic Acid Level 3.3 mmol/L 2.1 mmol/L Total Creatine Kinase 166 U/L Creatine Kinase MB 1.0 NG/ML Troponin I LESS THAN 0.02 NG/ML B-Type Natriuretic Peptide 144 PG/ML Phosphorus Level 3.5 MG/DL Magnesium Level 2.2 MG/DL C-Reactive Protein 2.10 MG/DL Urine Color LIGHT-YELLOW Urine Turbidity CLEAR Urine pH 5.5 Urine Specific [place] 1.011 Urine Protein NEG mg/dL Urine Glucose (UA) NEG mg/dL Urine Ketones NEG mg/dL Urine Occult Blood NEG Urine Nitrite NEG Urine Bilirubin NEG Urine Urobilinogen LESS THAN 2.0 MG/DL Urine Leukocyte Esterase NEG Urine RBC 1 /hpf Urine WBC LESS THAN 1 /hpf Microscopic Urinalysis Comment CULT NOT INDICATED Urine Opiates Screen POS Urine Barbiturates Screen NEG Urine Amphetamines Screen NEG Urine Benzodiazepines Screen POS Urine Cocaine Screen NEG Urine Cannabinoids Screen NEG Test 11/19/17 04:45 White Blood Count 13.2 TH/MM3 Red Blood Count 3.59 MIL/MM3 Hemoglobin 10.3 GM/DL Hematocrit 31.3 % Mean Corpuscular Volume 87.3 FL Mean Corpuscular Hemoglobin 28.8 PG Mean Corpuscular Hemoglobin Concent 33.0 % Red Cell Distribution Width 14.2 % Platelet Count 341 TH/MM3 Mean Platelet Volume 7.3 FL Neutrophils (%) (Auto) 68.0 % Lymphocytes (%) (Auto) 21.8 % Monocytes (%) (Auto) 5.7 % Eosinophils (%) (Auto) 3.4 % Basophils (%) (Auto) 1.1 % Neutrophils # (Auto) 9.0 TH/MM3 Lymphocytes # (Auto) 2.9 TH/MM3 Monocytes # (Auto) 0.8 TH/MM3 Eosinophils # (Auto) 0.4 TH/MM3 Basophils # (Auto) 0.2 TH/MM3 CBC Comment AUTO DIFF Differential Total Cells Counted 100 Neutrophils % (Manual) 67 % Band Neutrophils % 2 % Lymphocytes % 19 % Monocytes % 5 % Eosinophils % 2 % Neutrophils # (Manual) 9.8 TH/MM3 Metamyelocytes 5 % Differential Comment FINAL DIFF MANUAL Platelet Estimate NORMAL Platelet Morphology Comment NORMAL Red Cell Morphology Comment NORMAL Blood Urea Nitrogen 15 MG/DL Creatinine 1.14 MG/DL Random Glucose 80 MG/DL Total Protein 6.0 GM/DL Albumin 2.3 GM/DL Calcium Level 8.1 MG/DL Alkaline Phosphatase 68 U/L Aspartate Amino Transf (AST/SGOT) 11 U/L Alanine Aminotransferase (ALT/SGPT) 21 U/L Total Bilirubin 0.1 MG/DL Sodium Level 139 MEQ/L Potassium Level 4.2 MEQ/L Chloride Level 106 MEQ/L Carbon Dioxide Level 27.5 MEQ/L Anion Gap 6 MEQ/L Estimat Glomerular Filtration Rate 66 ML/MIN Objective Remarks Lower extremity physical exam: Vascular: Dorsalis pedis nonpalpable secondary to edema, posterior tibial nonpalpable secondary to edema. Capillary refill time within normal limits to digits 5 bilateral foot. Edema present bilateral foot and ankle. Neuro: Gross sensation intact to bilateral lower extremity. Pinpoint sensation decreased. No hyperalgesia noted to bilateral lower extremity Dermatology: Erythema noted to bilateral lower extremity improvement noted with recession of cellulitis. Brawny induration noted to bilateral lower extremity. Venous stasis dermatitis noted to bilateral lower extremity. Right leg lateral venous stasis wound measuring approximately 3 cm x 4 cm with 0.1 depth. Anterior medial venous leg wound measuring approximately 2 cm x 2 cm 0.1 depth. Left lower extremity medial and lateral venous leg wounds each measuring 4 cm x 4 cm with 0.1 depth. Weeping drainage noted to bilateral lower extremity left greater than right, improvement noted in drainage. Musculoskeletal: Tender to palpation to bilateral lower extremities at ulcer locations. No decrease in bilateral medial longitudinal arch. No gross deformities noted. Medications and IVs Current Medications Medications (Trade) Dose Ordered Sig/Katelyn Route Start Time Stop Time Status Last Admin (KlonoPIN) 1 mg DAILY PO 11/19/17 09:00 11/19/17 08:40 (Dolophine) 20 mg TID PO 11/19/17 09:00 11/19/17 13:09 (Deltasone) 20 mg DAILY PO 11/19/17 09:00 11/19/17 08:40 (Tylenol) 650 mg Q4H PRN PO 11/18/17 19:15 (Zofran Inj) 4 mg Q6H PRN IVP 11/18/17 19:15 (Lovenox Inj) 40 mg Q24H SQ 11/18/17 20:00 Future Hold 11/18/17 21:34 (Narcan Inj) 0.4 mg UNSCH PRN IV PUSH 11/18/17 19:15 (Deanna-Colace) 1 tab BID PO 11/18/17 21:00 11/18/17 21:34 Sodium Chloride 1,000 ml @ 200 mls/hr Q5H IV 11/18/17 20:00 11/19/17 12:19 ([place] 7.5-325 Mg) 1 tab Q4H PRN PO 11/18/17 19:15 11/19/17 04:46 (Toradol Inj) 30 mg Q6H PRN IVP 11/18/17 19:15 11/23/17 19:14 Pharmacy Profile Note 0 ml @ 0 mls/hr UNSCH OTHER 11/18/17 19:15 Piperacillin Sod/ Tazobactam Sod 100 ml @ 200 mls/hr Q6H IV 11/19/17 00:00 11/19/17 11:16 (Apresoline) 10 mg Q6HR PRN PO 11/18/17 19:30 Vancomycin HCl 1750 mg/Sodium Chloride 517.5 ml @ 250 mls/hr Q12H IV 11/19/17 02:00 11/19/17 13:09 Miscellaneous Information SPECIFIC LAB TO BE DRAWN:VANCO TROUGH DATE TO BE DR... ONCE ONCE .XX 11/20/17 01:45 11/20/17 01:46 Clindamycin/ Sodium Chloride 50 ml @ 100 mls/hr Q8H IV 11/19/17 00:00 11/19/17 15:06 (Dolophine) 20 mg DAILY PRN PO 11/19/17 08:45 Assessment and Plan Assessment and Plan A 56-year-old male with bilateral lower extremity venous stasis ulcers with associated resolving cellulitis Patient evaluated and examined with all questions answered Bilateral lower extremities dressed with Aquacel and absorbent dressing with Akash bandages 2 to each leg for compression Continue daily dressing changes recommend Unna boots to bilateral LE Will place wound care nursing consult Podiatry signing off please reconsult as needed Care consult placed for patients follow up. He will need to follow up with a prevention coordinator. Follow up in office 1 week within discharge. Yenny Power DPM Nov 19, 2017 16:02
--- NOTE | 2017-11-19 16:38 | PD.ID.CON ---
History of Present Illness Service ID Consult Requested By resident Reason for Consult Evaluation and Mment of Bilateral LE infected ulcers and cellulitis. Primary Care Physician Yossi Forrester DO Diagnoses: History of Present Illness Mr. Longoria is a 56-year-old morbidly obese male with past medical history significant for hypertension, chronic venous stasis in his bilateral lower extremities, osteoarthritis. Patient presents to [place] ED for evaluation of chronic bilateral lower extremity cellulitis. Patient states in the last 1 week his leg started hurting to the point where he could hardly get up from the couch and his home to use the bathroom. His PCP is Dr. Forrester saw him last patient reports excruciating sharp burning in stabbing pain in 10 out of 10. He took some left over antibiotics from a friend but that did not help. He came to the ED due to excruciating pain. He reports no history of diabetes. He has not followed up with wound care due to financial issues. He denies any fever or chills. He reports losing from bilateral lower eczema the ulcers time and again. He denies being on any chronic diuretic. He denies being on any oral suppressive antibiotic. He reports recurrent cellulitis bilateral lower extremity. Infectious disease is consulted for evaluation and management of bilateral lower extremity infected ulcers and cellulitis. Review of Systems ROS Limitations: Poor Historian Past Family Social History Allergies: Coded Allergies: No Known Allergies (Unverified Adverse Reaction, Unknown, 11/18/17) Past Medical History Spinal stenosis Arthritis - in the knees bilaterally Hypertension Carpal tunnel Poor circulation in lower legs Past Surgical History Tonsillectomy at 17 years of age Reported Medications Reported Meds & Active Scripts Active Reported Methadone (Methadone HCl) 10 Mg Tab 20 Mg PO TID Klonopin (Clonazepam) 1 Mg Tab 1 Mg PO DAILY Prednisone 20 Mg Tab 20 Mg PO DAILY Lisinopril 20 Mg Tab 20 Mg PO DAILY Active Ordered Medications Current Medications Medications (Trade) Dose Ordered Sig/Katelyn Route Start Time Stop Time Status Last Admin (KlonoPIN) 1 mg DAILY PO 11/19/17 09:00 11/19/17 08:40 (Dolophine) 20 mg TID PO 11/19/17 09:00 11/19/17 13:09 (Deltasone) 20 mg DAILY PO 11/19/17 09:00 11/19/17 08:40 (Tylenol) 650 mg Q4H PRN PO 11/18/17 19:15 (Zofran Inj) 4 mg Q6H PRN IVP 11/18/17 19:15 (Lovenox Inj) 40 mg Q24H SQ 11/18/17 20:00 Future Hold 11/18/17 21:34 (Narcan Inj) 0.4 mg UNSCH PRN IV PUSH 11/18/17 19:15 (Deanna-Colace) 1 tab BID PO 11/18/17 21:00 11/18/17 21:34 Sodium Chloride 1,000 ml @ 200 mls/hr Q5H IV 11/18/17 20:00 11/19/17 12:19 ([place] 7.5-325 Mg) 1 tab Q4H PRN PO 11/18/17 19:15 11/19/17 04:46 (Toradol Inj) 30 mg Q6H PRN IVP 11/18/17 19:15 11/23/17 19:14 Pharmacy Profile Note 0 ml @ 0 mls/hr UNSCH OTHER 11/18/17 19:15 Piperacillin Sod/ Tazobactam Sod 100 ml @ 200 mls/hr Q6H IV 11/19/17 00:00 11/19/17 11:16 (Apresoline) 10 mg Q6HR PRN PO 11/18/17 19:30 Vancomycin HCl 1750 mg/Sodium Chloride 517.5 ml @ 250 mls/hr Q12H IV 11/19/17 02:00 11/19/17 13:09 Miscellaneous Information SPECIFIC LAB TO BE DRAWN:VANCO TROUGH DATE TO BE DRRaj.. 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 [employer] Lives in [place], lives with ex-, a female roommate, and older son Non-smoker No alcohol use No illicit drugs Pt chews tobacco Physical Exam Vital Signs Vital Signs Date Time Temp Pulse Resp B/P (MAP) Pulse Ox O2 Delivery O2 Flow Rate FiO2 11/19/17 12:39 78 11/19/17 12:06 97.6 68 21 132/64 (86) 93 11/19/17 08:06 97.4 66 21 124/76 (92) 93 11/19/17 08:00 62 11/19/17 04:00 98.2 64 20 118/72 (87) 95 11/19/17 03:54 66 11/19/17 00:00 Room Air 11/19/17 00:00 98.2 73 20 140/78 (98) 97 11/18/17 21:35 64 11/18/17 20:00 97.7 61 20 138/69 (92) 96 11/18/17 20:00 Room Air 11/18/17 19:42 Physical Exam GENERAL: This is a well-nourished, well-developed patient, in no apparent distress. SKIN: No rashes, ecchymoses or lesions. Cool and dry. HEAD: Atraumatic. Normocephalic. No temporal or scalp tenderness. EYES: Pupils equal round and reactive. Extraocular motions intact. No scleral icterus. No injection or drainage. ENT: Nose without bleeding, purulent drainage or septal hematoma. Throat without erythema, tonsillar hypertrophy or exudate. Uvula midline. Airway patent. NECK: Trachea midline. Supple, nontender, no meningeal signs. CARDIOVASCULAR: Regular rate and rhythm without murmurs. RESPIRATORY: Clear to auscultation. Breath sounds equal bilaterally. No wheezes , rales, or rhonchi. GASTROINTESTINAL: Abdomen soft, non-tender, nondistended. Obese. MUSCULOSKELETAL: Bilateral LE in ELVIA wraps. Patient deferred exam today. NEUROLOGICAL: Awake and alert. No obvious focal deficit. Psych cooperative IV line sites with no e.o infection. Laboratory Laboratory Tests Test 11/18/17 18:56 11/18/17 19:40 11/18/17 20:00 11/19/17 04:45 Lactic Acid Level 2.1 Potassium Level 4.8 4.2 Phosphorus Level 3.5 Magnesium Level 2.2 C-Reactive Protein 2.10 Urine Color LIGHT-YELLOW Urine Turbidity CLEAR Urine pH 5.5 Urine Specific [place] 1.011 Urine Protein NEG Urine Glucose (UA) NEG Urine Ketones NEG Urine Occult Blood NEG Urine Nitrite NEG Urine Bilirubin NEG Urine Urobilinogen LESS THAN 2.0 Urine Leukocyte Esterase NEG Urine RBC 1 Urine WBC LESS THAN 1 Microscopic Urinalysis Comment CULT NOT INDICATED Urine Opiates Screen POS Urine Barbiturates Screen NEG Urine Amphetamines Screen NEG Urine Benzodiazepines Screen POS Urine Cocaine Screen NEG Urine Cannabinoids Screen NEG White Blood Count 13.2 Red Blood Count 3.59 Hemoglobin 10.3 Hematocrit 31.3 Mean Corpuscular Volume 87.3 Mean Corpuscular Hemoglobin 28.8 Mean Corpuscular Hemoglobin Concent 33.0 Red Cell Distribution Width 14.2 Platelet Count 341 Mean Platelet Volume 7.3 Neutrophils (%) (Auto) 68.0 Lymphocytes (%) (Auto) 21.8 Monocytes (%) (Auto) 5.7 Eosinophils (%) (Auto) 3.4 Basophils (%) (Auto) 1.1 Neutrophils # (Auto) 9.0 Lymphocytes # (Auto) 2.9 Monocytes # (Auto) 0.8 Eosinophils # (Auto) 0.4 Basophils # (Auto) 0.2 CBC Comment AUTO DIFF Differential Total Cells Counted 100 Neutrophils % (Manual) 67 Band Neutrophils % 2 Lymphocytes % 19 Monocytes % 5 Eosinophils % 2 Neutrophils # (Manual) 9.8 Metamyelocytes 5 Differential Comment FINAL DIFF MANUAL Platelet Estimate NORMAL Platelet Morphology Comment NORMAL Red Cell Morphology Comment NORMAL Blood Urea Nitrogen 15 Creatinine 1.14 Random Glucose 80 Total Protein 6.0 Albumin 2.3 Calcium Level 8.1 Alkaline Phosphatase 68 Aspartate Amino Transf (AST/SGOT) 11 Alanine Aminotransferase (ALT/SGPT) 21 Total Bilirubin 0.1 Sodium Level 139 Chloride Level 106 Carbon Dioxide Level 27.5 Anion Gap 6 Estimat Glomerular Filtration Rate 66 Date/Time Source Procedure Growth Status 11/18/17 15:12 Blood Peripheral Aerobic Blood Culture - Preliminary NO GROWTH IN 1 DAY Resulted 11/18/17 15:12 Blood Peripheral Anaerobic Blood Culture - Preliminary NO GROWTH IN 1 DAY Resulted Result Diagram: 11/19/17 0445 11/19/17 0445 Imaging Last Impressions Lower Extremity Ultrasound 11/18/17 1500 Signed Impressions: Service Date/Time: Saturday, November 18, 2017 15:34 - CONCLUSION: Unremarkable exam with no evidence of deep venous spondylosis. Sahil Sanchez MD Chest X-Ray 11/18/17 1500 Signed Impressions: Service Date/Time: Saturday, November 18, 2017 15:07 - CONCLUSION: No acute disease. Sahil Sanchez MD Assessment and Plan Assessment and Plan Bilateral lower extremity infected ulcers and cellulitis Chronic venous stasis possible lymphedema Morbid obesity BMI of 55.5 KG per meter square. Recurrent cellulitis Recs: Continue Zosyn IV for now Continue vancomycin IV target 15 Discontinue clindamycin Follow cultures Follow clinically d/w Podiatry Will follow in am and examine wounds. Shanae Serrato MD Nov 19, 2017 16:38
--- NOTE | 2017-11-19 17:21 | EKG ---
Date Performed: 11/18/2017 Time Performed: 14:46:23 PTAGE: 56 years EKG: Sinus rhythm NORMAL ECG PREVIOUS TRACING 01/31/14 @ 01.52.24 Since previous tracing, no significant change noted DOCTOR: Oscar Collazo Interpretating Date/Time 11/19/2017 17:19:49
[2017-11-20] VITALS (10 sets, daily range): BP systolic 143–168; BP diastolic 73–87; PULSE 58–90; RESP 18–21; TEMP 97.6–98; O2SAT 90–96
[2017-11-20] MEDS: PIPERACIL-TAZO 4.5 GM PREMIX 100 ML IV SCH ×3 (00:11→13:07)
[2017-11-20] MEDS ORDERED: PHARMACY ORDERED LAB ONE (01:45)
[2017-11-20] MEDS: VANCOMYCIN INJ 1,750 MG in SODIUM CHLORID 0.9% 500 ML INJ 500 ML IV SCH (02:00)
[2017-11-20] MEDS: SODIUM CHLOR 0.9% 1000 ML INJ 1,000 ML IV SCH ×3 (04:31→12:00)
[2017-11-20] MEDS: ACETAMINOPHEN/HYDROcodone 325 MG/7.5 MG TAB PO PRN ×3 (05:41→23:30)
[2017-11-20 07:40] LABS: AUTOMATED NEUTROPHIL # 5.9 TH/MM3 (1.8-7.7); BASOPHIL # 0.1 TH/MM3 (0-0.2); BASOPHIL % 1.1 % (0.0-2.0); EOSINOPHIL # 0.3 TH/MM3 (0-0.4); EOSINOPHIL % 2.8 % (0.0-4.0); HEMATOCRIT 31.6 % (39.0-51.0); HEMOGLOBIN 10.4 GM/DL (13.0-17.0); LYMPHOCYTE # 2.9 TH/MM3 (1.0-4.8); MEAN CELL VOLUME 87.3 FL (80.0-100.0); MEAN CORPUSCULAR HEMOGLOBIN 28.8 PG (27.0-34.0); MEAN CORPUSCULAR HGB CONC 32.9 % (32.0-36.0); MEAN PLATELET VOLUME 7.4 FL (7.0-11.0); MONO % 7.2 % (0.0-8.0); MONOCYTE # 0.7 TH/MM3 (0-0.9); NEUT % 59.9 % (16.0-70.0); PLATELET COUNT 357 TH/MM3 (150-450); RED BLOOD COUNT 3.61 MIL/MM3 (4.50-5.90); RED CELL DISTRIBUTION WIDTH 14.7 % (11.6-17.2); WHITE BLOOD COUNT 9.9 TH/MM3 (4.0-11.0)
[2017-11-20 08:05] LABS: ALBUMIN 2.4 GM/DL (3.4-5.0); AST (GOT) 10 U/L (15-37); BICARBONATE 25.2 MEQ/L (21.0-32.0); BLOOD UREA NITROGEN 14 MG/DL (7-18); CALCIUM 8.2 MG/DL (8.5-10.1); CHLORIDE 107 MEQ/L (98-107); CREATININE 1.14 MG/DL (0.60-1.30); GLOMERULAR FILTRATION RATE 66 ML/MIN (>89); GLUCOSE,RANDOM 78 MG/DL (74-106); SODIUM (NA) 140 MEQ/L (136-145)
[2017-11-20 08:06] LABS: ALT (GPT) 17 U/L (12-78)
[2017-11-20 08:08] LABS: ALKALINE PHOSPHATASE 59 U/L (45-117); TOTAL BILIRUBIN ADULT 0.2 MG/DL (0.2-1.0)
[2017-11-20 08:37] LABS: LYMPHOCYTES 39 % (9-44); METAMYELOCYTES 2 % (0-1); MONOCYTES 3 % (0-8); NEUTROPHIL # MANUAL DIFF 5.5 TH/MM3 (1.8-7.7); POLYS (SEG NEUTROPHILS) 54 % (16-70)
[2017-11-20] MEDS: DOCUSATE SODIUM 50 MG/SENNA 8.6 MG TAB PO SCH ×2 (09:00→23:30)
[2017-11-20] MEDS: METHADONE HCL 10 MG TAB PO SCH ×3 (09:52→19:31)
[2017-11-20] MEDS: predniSONE 20 MG TAB PO SCH (09:52)
[2017-11-20] MEDS: clonazePAM 1 MG TAB PO SCH (09:52)
[2017-11-20] MEDS ORDERED: VANCOMYCIN INJ 1,500 MG in SODIUM CHLORID 0.9% 500 ML INJ 500 ML IV SCH (10:00)
--- NOTE | 2017-11-20 10:59 | HHI.FPPN ---
Subjective Remarks Mr Longoria had no acute events overnight. He is feeling about 20% better than yesterday, wound care was by yesterday to dress his wounds and he was OOB with PT as well. His pain is controlled, is ambulating, taking PO, voiding and stooling. Denies CP, SOB, N/V/D, and DVT pain. (Cristian Barrera MD R1) Objective Vitals Vital Signs Date Time Temp Pulse Resp B/P (MAP) Pulse Ox O2 Delivery O2 Flow Rate FiO2 11/20/17 08:00 97.6 60 18 146/87 (106) 94 11/20/17 07:57 96 11/20/17 04:00 97.7 64 18 143/78 (99) 96 11/20/17 03:47 65 11/20/17 00:46 67 11/20/17 00:00 98.0 73 18 168/85 (112) 94 11/19/17 20:55 95 11/19/17 20:00 97.6 77 20 131/65 (87) 95 11/19/17 19:42 79 11/19/17 17:46 68 11/19/17 16:05 98.0 69 20 129/72 (91) 95 11/19/17 12:39 78 11/19/17 12:06 97.6 68 21 132/64 (86) 93 I/O 11/19/17 11/19/17 11/19/17 11/20/17 11/20/17 11/20/17 07:00 15:00 23:00 07:00 15:00 23:00 Intake Total 2010 ml 150 ml 3307.5 ml 1200 ml Balance 2010 ml 150 ml 3307.5 ml 1200 ml Intake Oral 240 ml 240 ml IV Total 1770 ml 150 ml 3067.5 ml 1200 ml # Voids 2 5 2 # Bowel Movements 0 1 (Cristian Barrera MD R1) Result Diagram: 11/20/17 0645 11/20/17 0645 Imaging Last 48 hours Impressions Lower Extremity Ultrasound 11/18/17 1500 Signed Impressions: Service Date/Time: Saturday, November 18, 2017 15:34 - CONCLUSION: Unremarkable exam with no evidence of deep venous spondylosis. Sahil Sanchez MD Chest X-Ray 11/18/17 1500 Signed Impressions: Service Date/Time: Saturday, November 18, 2017 15:07 - CONCLUSION: No acute disease. Sahil Sanchez MD Objective Remarks GENERAL: Well-nourished, well-developed morbidly obese patient lying in bed. SKIN: Warm and dry. No rash but has a 1.5 cm verrucous growth on his right nasolabial fold. HEAD: Normocephalic. Atraumatic. EYES: No scleral icterus. No injection or drainage. EOMI. NECK: Supple, trachea midline--hard to assess with body habitus. No JVD or lymphadenopathy. CARDIOVASCULAR: Regular rate and rhythm without murmur, gallop, or rub. RESPIRATORY: Breath sounds distant but equal bilaterally. No accessory muscle use. GASTROINTESTINAL: Abdomen soft, non-tender, morbidly obese. No guarding. Normal BS. EXTREMITIES: No cyanosis, or edema. Moves all spontaneously. Aksah bandages over wounds bilaterally. Wounds not assessed on exam today. NEUROLOGICAL: Awake, alert, and oriented x 3. Non-focal. Medications and IVs Current Medications Medications (Trade) Dose Ordered Sig/Katelyn Route Start Time Stop Time Status Last Admin (KlonoPIN) 1 mg DAILY PO 11/19/17 09:00 11/20/17 09:52 (Dolophine) 20 mg TID PO 11/19/17 09:00 11/20/17 13:06 (Deltasone) 20 mg DAILY PO 11/19/17 09:00 11/20/17 09:52 (Tylenol) 650 mg Q4H PRN PO 11/18/17 19:15 (Zofran Inj) 4 mg Q6H PRN IVP 11/18/17 19:15 (Lovenox Inj) 40 mg Q24H SQ 11/18/17 20:00 Future Hold 11/18/17 21:34 (Narcan Inj) 0.4 mg UNSCH PRN IV PUSH 11/18/17 19:15 (Deanna-Colace) 1 tab BID PO 11/18/17 21:00 11/19/17 20:35 Sodium Chloride 1,000 ml @ 200 mls/hr Q5H IV 11/18/17 20:00 11/20/17 09:51 ([place] 7.5-325 Mg) 1 tab Q4H PRN PO 11/18/17 19:15 11/20/17 13:07 (Toradol Inj) 30 mg Q6H PRN IVP 11/18/17 19:15 11/23/17 19:14 Pharmacy Profile Note 0 ml @ 0 mls/hr UNSCH OTHER 11/18/17 19:15 Piperacillin Sod/ Tazobactam Sod 100 ml @ 200 mls/hr Q6H IV 11/19/17 00:00 11/20/17 13:07 (Apresoline) 10 mg Q6HR PRN PO 11/18/17 19:30 (Dolophine) 20 mg DAILY PRN PO 11/19/17 08:45 Vancomycin HCl 1500 mg/Sodium Chloride 515 ml @ 250 mls/hr Q12H IV 11/20/17 10:00 11/20/17 09:54 Miscellaneous Information SPECIFIC LAB TO BE ... ONCE ONCE .XX 11/21/17 09:45 11/21/17 09:46 (Prinivil) 20 mg DAILY PO 11/20/17 10:15 11/20/17 13:06 (Cristian Barrera MD R1) Urinary Catheter: No (Cristian Barrera MD R1) A/P Assessment and Plan 56 year old male presents with acute on chronic bilateral lower extremity cellulitis, worse on the left. He will be admitted for management with IV antibiotics, fluids and pain control. Podiatry has been consulted to assist with management and has performed debridement. 11/20: Improving clinically, but keeping IVF on board due to IV abx and Cr 1.14. Blood cx NGTD (2 days). Podiatry has signed off. ID to see again today and assess readiness for dc. -Met sepsis criteria on admission with a pulse of 107 and elevated WBC of 13.4 -Sepsis workup initiated: Negative chest x-ray, urinalysis not indicative of infection -ID consulted for abx management -Blood cultures pending, expect wound cultures from debrided specimen -Vancomycin 1750 mg every 12 hours IV, pharmacy to assist with dosing -Zosyn 4.5 mg IV every 6 hours - ID discontinued clindamycin 600 mg IV every 8 hours on 11/19 -Pain management with [place] and Dilaudid 1 mg IV for breakthrough pain, Toradol 30 mg every 6 hours IV when necessary for inflammation -Zofran for nausea/vomiting as needed -Podiatry consult -Wound care consult -Ultrasound of right lower extremity - no evidence of deep vein thrombosis -Extent of cellulitis marked for progression/regression -Will continue to monitor -Neuro checks, vitals 4 hours, out of bed with assistance, monitor I's and O's Chronic Back Pain and Arthritis: -Will continue home dose of Methadone Hypertension: -Continue home dose, will monitor for changes Depression: -Continue clonazepam 1 mg by mouth daily FEN/GI: PO fluids, Monitor electrolytes daily and replete as needed. Deanna- Colace for constipation prophylaxis PPx: Lovenox 40mg subcu daily. Respiratory incentive spirometer to prevent atelectasis. Tylenol for fever Dispo: Discharge is pending sepsis work-up, clinical improvement, and podiatry recommendations. PT to assist with ambulation. Case management to assist with discharge needs. Discharge Planning When cleared by ID (Cristian Barrera MD R1) Attending Attestation Patient seen and examined. Case reviewed and discussed Agree with plan of care as discussed with me and documented in the resident note. (Camila Gardiner MD) Problem List: (1) Sepsis ICD Codes: A41.9 - Sepsis, unspecified organism Status: Resolved (2) Lower extremity cellulitis ICD Codes: L03.119 - Lower extremity cellulitis Status: Acute (3) Osteoarthritis of knees, bilateral ICD Codes: M17.0 - Bilateral primary osteoarthritis of knee (4) Chronic venous stasis dermatitis ICD Codes: I87.2 - Venous insufficiency (chronic) (peripheral) (Cristian Barrera MD R1) Problem Qualifiers (1) Lower extremity cellulitis: Qualified Codes: L03.119 - Cellulitis of unspecified part of limb Cristian Barrera MD R1 Nov 20, 2017 10:59 Camila Gardiner MD Nov 28, 2017 16:45
[2017-11-20] MEDS: LISINOPRIL 20 MG TAB PO SCH (13:06)
--- NOTE | 2017-11-20 18:04 | PD.WCN.NOT ---
Wound Consult Description: Received consult for wound management of bilateral legs from Doctor Joni Communicated with: FELIX Garcia RN [address] [place] [address] and Doctor Tono Podiatry Recommendation: Please leave unna boots with coban in place until Monday. Wound care will change.Then leave in place until Monday, and if still here wound care will change again. Please change every 3 to 5 days when discharged by [facility] nurse as follows Cleanse wounds to bilateral lower extremities with wound cleanser and pat dry. Apply gentle foam dressing with AG over wounds. Apply Unna boots, then wrap with rolled gauze and then Coban. Please follow up with out patient wound care. Additional Information: Patient seen on [address] [place] [address] for Unna boot application Per Doctor Tono podiatry recommendation.Removed dressings in place to reveal bilateral leg ulcers. L lateral leg ulcer presents as shallow full thickness wound that measures ~6cm x ~5cm x ~0.1cm Wound bed presents with ~70% red non granulation tissue and ~30 % yellow tissue.Wound drainage is minimal and sero-sanguinous with out odor. Wound margins are jagged and uneven Cleansed wound with wound cleanser R lower leg lateral leg ulcer presents with 100% red non granulation tissue and has minimal sero-sanguinous drainage without odor. Wound measures ~6cm x ~6cm x~ 0.1cm. Wound margins are jagged, and uneven and poorly defined. Cleansed wound with wound cleanser. Applied Optfoam AG gentle cut to fit over wounds to bilateral lower legs. Applied unna boot wraps from just behind to toes to two finger widths below the bend of the knee on bilateral lower legs. Secured with rolled gauze. Then applied Coban 4 inch wrap. Will change on Monday11/22/2017. Lakeisha Izquierdo [facility] Nov 20, 2017 18:04
--- NOTE | 2017-11-20 18:17 | HHI.IDPN ---
Subjective Subjective Remarks Mr. Longoria is a 56-year-old morbidly obese male with past medical history significant for hypertension, chronic venous stasis in his bilateral lower extremities, osteoarthritis. Patient presents to [place] ED for evaluation of chronic bilateral lower extremity cellulitis. Patient states in the last 1 week his leg started hurting to the point where he could hardly get up from the couch and his home to use the bathroom. His PCP is Dr. Forrester saw him last patient reports excruciating sharp burning in stabbing pain in 10 out of 10. He took some left over antibiotics from a friend but that did not help. He came to the ED due to excruciating pain. He reports no history of diabetes. He has not followed up with wound care due to financial issues. He denies any fever or chills. He reports losing from bilateral lower eczema the ulcers time and again. He denies being on any chronic diuretic. He denies being on any oral suppressive antibiotic. He reports recurrent cellulitis bilateral lower extremity. Infectious disease is consulted for evaluation and management of bilateral lower extremity infected ulcers and cellulitis. 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 Antibiotics Zosyn IV Vanco IV Lines Line sites with no e.o infection Past Medical History reviewed Allergies: Coded Allergies: No Known Allergies (Unverified Adverse Reaction, Unknown, 11/18/17) Objective . Vital Signs Date Time Temp Pulse Resp B/P (MAP) Pulse Ox O2 Delivery O2 Flow Rate FiO2 11/20/17 15:55 97.6 90 18 148/74 (98) 90 11/20/17 12:13 97.6 67 21 143/73 (96) 94 11/20/17 08:00 97.6 60 18 146/87 (106) 94 11/20/17 07:57 96 11/20/17 07:46 58 11/20/17 04:00 97.7 64 18 143/78 (99) 96 11/20/17 03:47 65 11/20/17 00:46 67 11/20/17 00:00 98.0 73 18 168/85 (112) 94 11/19/17 20:55 95 11/19/17 20:00 97.6 77 20 131/65 (87) 95 11/19/17 19:42 79 11/20/17 11/20/17 11/21/17 15:00 23:00 07:00 Intake Total 480 ml Balance 480 ml Intake Oral 480 ml # Voids 2 . Laboratory Tests Test 11/19/17 04:45 11/20/17 06:45 White Blood Count 13.2 TH/MM3 9.9 TH/MM3 Red Blood Count 3.59 MIL/MM3 3.61 MIL/MM3 Hemoglobin 10.3 GM/DL 10.4 GM/DL Hematocrit 31.3 % 31.6 % Mean Corpuscular Volume 87.3 FL 87.3 FL Mean Corpuscular Hemoglobin 28.8 PG 28.8 PG Mean Corpuscular Hemoglobin Concent 33.0 % 32.9 % Red Cell Distribution Width 14.2 % 14.7 % Platelet Count 341 TH/MM3 357 TH/MM3 Mean Platelet Volume 7.3 FL 7.4 FL Neutrophils (%) (Auto) 68.0 % 59.9 % Lymphocytes (%) (Auto) 21.8 % 29.0 % Monocytes (%) (Auto) 5.7 % 7.2 % Eosinophils (%) (Auto) 3.4 % 2.8 % Basophils (%) (Auto) 1.1 % 1.1 % Neutrophils # (Auto) 9.0 TH/MM3 5.9 TH/MM3 Lymphocytes # (Auto) 2.9 TH/MM3 2.9 TH/MM3 Monocytes # (Auto) 0.8 TH/MM3 0.7 TH/MM3 Eosinophils # (Auto) 0.4 TH/MM3 0.3 TH/MM3 Basophils # (Auto) 0.2 TH/MM3 0.1 TH/MM3 CBC Comment AUTO DIFF AUTO DIFF Differential Total Cells Counted 100 100 Neutrophils % (Manual) 67 % 54 % Band Neutrophils % 2 % Lymphocytes % 19 % 39 % Monocytes % 5 % 3 % Eosinophils % 2 % 2 % Neutrophils # (Manual) 9.8 TH/MM3 5.5 TH/MM3 Metamyelocytes 5 % 2 % Differential Comment FINAL DIFF MANUAL FINAL DIFF MANUAL Platelet Estimate NORMAL NORMAL Platelet Morphology Comment NORMAL NORMAL Red Cell Morphology Comment NORMAL NORMAL Laboratory Tests Test 11/18/17 18:56 11/18/17 19:40 11/19/17 04:45 11/19/17 17:16 Lactic Acid Level 2.1 mmol/L 1.7 mmol/L Potassium Level 4.8 MEQ/L 4.2 MEQ/L Phosphorus Level 3.5 MG/DL Magnesium Level 2.2 MG/DL C-Reactive Protein 2.10 MG/DL Blood Urea Nitrogen 15 MG/DL Creatinine 1.14 MG/DL Random Glucose 80 MG/DL Total Protein 6.0 GM/DL Albumin 2.3 GM/DL Calcium Level 8.1 MG/DL Alkaline Phosphatase 68 U/L Aspartate Amino Transf (AST/SGOT) 11 U/L Alanine Aminotransferase (ALT/SGPT) 21 U/L Total Bilirubin 0.1 MG/DL Sodium Level 139 MEQ/L Chloride Level 106 MEQ/L Carbon Dioxide Level 27.5 MEQ/L Anion Gap 6 MEQ/L Estimat Glomerular Filtration Rate 66 ML/MIN Test 11/20/17 06:45 Blood Urea Nitrogen 14 MG/DL Creatinine 1.14 MG/DL Random Glucose 78 MG/DL Total Protein 6.0 GM/DL Albumin 2.4 GM/DL Calcium Level 8.2 MG/DL Alkaline Phosphatase 59 U/L Aspartate Amino Transf (AST/SGOT) 10 U/L Alanine Aminotransferase (ALT/SGPT) 17 U/L Total Bilirubin 0.2 MG/DL Sodium Level 140 MEQ/L Potassium Level 3.7 MEQ/L Chloride Level 107 MEQ/L Carbon Dioxide Level 25.2 MEQ/L Anion Gap 8 MEQ/L Estimat Glomerular Filtration Rate 66 ML/MIN Microbiology Date/Time Source Procedure Growth Status 11/18/17 15:12 Blood Peripheral Aerobic Blood Culture - Preliminary NO GROWTH IN 2 DAYS Resulted 11/18/17 15:12 Blood Peripheral Anaerobic Blood Culture - Preliminary NO GROWTH IN 2 DAYS Resulted 11/18/17 15:00 Blood Peripheral Aerobic Blood Culture - Preliminary NO GROWTH IN 2 DAYS Resulted 11/18/17 15:00 Blood Peripheral Anaerobic Blood Culture - Preliminary NO GROWTH IN 2 DAYS Resulted Imaging Last Impressions Lower Extremity Ultrasound 11/18/17 1500 Signed Impressions: Service Date/Time: Saturday, November 18, 2017 15:34 - CONCLUSION: Unremarkable exam with no evidence of deep venous spondylosis. Sahil Sanchez MD Chest X-Ray 11/18/17 1500 Signed Impressions: Service Date/Time: Saturday, November 18, 2017 15:07 - CONCLUSION: No acute disease. Sahil Sanchez MD Physical Exam GENERAL: This is a well-nourished, well-developed patient, in no apparent distress. SKIN: No rashes, ecchymoses or lesions. Cool and dry. HEAD: Atraumatic. Normocephalic. No temporal or scalp tenderness. EYES: Pupils equal round and reactive. Extraocular motions intact. No scleral icterus. No injection or drainage. ENT: Nose without bleeding, purulent drainage or septal hematoma. Throat without erythema, tonsillar hypertrophy or exudate. Uvula midline. Airway patent. NECK: Trachea midline. Supple, nontender, no meningeal signs. CARDIOVASCULAR: Regular rate and rhythm without murmurs. RESPIRATORY: Clear to auscultation. Breath sounds equal bilaterally. No wheezes , rales, or rhonchi. GASTROINTESTINAL: Abdomen soft, non-tender, nondistended. Obese. MUSCULOSKELETAL: Bilateral LE in Unaboots. NEUROLOGICAL: Awake and alert. No obvious focal deficit. Psych cooperative IV line sites with no e.o infection. Assessment & Plan Remarks Bilateral lower extremity infected ulcers and cellulitis Chronic venous stasis possible lymphedema Morbid obesity BMI of 55.5 KG per meter square. Recurrent cellulitis Recs: DC Zosyn IV for now DC vancomycin IV Start Ancef IV (can be transitioned to oral doxy or keflex) Unaboots placed today. d.w wound care to call me when unaboots opened on Mon. Meanwhile I am deescalating abx based on prior cultures when he had MSSA. Will follow up on Mon to assess if ready for transition to oral and discharge home. Follow cultures Follow clinically Shanae Serrato MD Nov 20, 2017 18:17
[2017-11-20] MEDS: ceFAZolin 2 GM PREMIX 50 ML IV SCH (19:32)
[2017-11-21] VITALS (11 sets, daily range): BP systolic 127–170; BP diastolic 66–88; PULSE 56–80; RESP 20–22; TEMP 97.7–98.3; O2SAT 93–96
[2017-11-21] MEDS: SODIUM CHLOR 0.9% 1000 ML INJ 1,000 ML IV SCH (01:34)
[2017-11-21] MEDS: ceFAZolin 2 GM PREMIX 50 ML IV SCH ×3 (02:02→18:37)
[2017-11-21] MEDS: ACETAMINOPHEN/HYDROcodone 325 MG/7.5 MG TAB PO PRN ×4 (03:37→20:24)
[2017-11-21 06:41] LABS: AUTOMATED NEUTROPHIL # 7.9 TH/MM3 (1.8-7.7); BASOPHIL # 0.1 TH/MM3 (0-0.2); BASOPHIL % 0.7 % (0.0-2.0); EOSINOPHIL # 0.2 TH/MM3 (0-0.4); HEMATOCRIT 32.1 % (39.0-51.0); HEMOGLOBIN 10.3 GM/DL (13.0-17.0); LYMPH % 21.6 % (9.0-44.0); LYMPHOCYTE # 2.5 TH/MM3 (1.0-4.8); MEAN CELL VOLUME 88.7 FL (80.0-100.0); MEAN CORPUSCULAR HEMOGLOBIN 28.6 PG (27.0-34.0); MEAN CORPUSCULAR HGB CONC 32.2 % (32.0-36.0); MEAN PLATELET VOLUME 7.1 FL (7.0-11.0); MONO % 7.2 % (0.0-8.0); MONOCYTE # 0.8 TH/MM3 (0-0.9); NEUT % 68.5 % (16.0-70.0); PLATELET COUNT 354 TH/MM3 (150-450); RED BLOOD COUNT 3.61 MIL/MM3 (4.50-5.90); RED CELL DISTRIBUTION WIDTH 14.2 % (11.6-17.2); WHITE BLOOD COUNT 11.6 TH/MM3 (4.0-11.0)
[2017-11-21 06:54] LABS: BICARBONATE 25.2 MEQ/L (21.0-32.0); CALCIUM 7.9 MG/DL (8.5-10.1); CREATININE 1.06 MG/DL (0.60-1.30)
--- NOTE | 2017-11-21 08:40 | HHI.FPPN ---
Subjective Remarks Mr Von had no acute events overnight. His legs feel better and his only complaint this morning is itching on his legs and back. He is ambulating, pain in controlled, tolerating PO, voiding and stooling. Denies CP, SOB, N/V/D, and DVT pain. (Cristian Barrera MD R1) Objective Vitals Vital Signs Date Time Temp Pulse Resp B/P (MAP) Pulse Ox O2 Delivery O2 Flow Rate FiO2 11/21/17 05:32 73 11/21/17 04:37 56 11/21/17 03:40 59 11/21/17 00:00 97.8 80 20 170/88 (115) 96 11/20/17 20:00 97.9 72 20 152/84 (106) 96 11/20/17 15:55 97.6 90 18 148/74 (98) 90 11/20/17 12:13 97.6 67 21 143/73 (96) 94 I/O 11/20/17 11/20/17 11/20/17 11/21/17 11/21/17 11/21/17 07:00 15:00 23:00 07:00 15:00 23:00 Intake Total 1200 ml 480 ml Balance 1200 ml 480 ml Intake Oral 480 ml IV Total 1200 ml # Voids 2 (Cristian Barrera MD R1) Result Diagram: 11/21/17 0540 11/21/17 0540 Objective Remarks GENERAL: Well-nourished, well-developed morbidly obese patient lying in bed. SKIN: Warm and dry. No rash but has a 1.5 cm verrucous growth on his right nasolabial fold. HEAD: Normocephalic. Atraumatic. EYES: No scleral icterus. No injection or drainage. EOMI. NECK: Supple, trachea midline--hard to assess with body habitus. No JVD or lymphadenopathy. CARDIOVASCULAR: Regular rate and rhythm without murmur, gallop, or rub. RESPIRATORY: Breath sounds distant but equal bilaterally. No accessory muscle use. GASTROINTESTINAL: Abdomen soft, non-tender, morbidly obese. No guarding. Normal BS. EXTREMITIES: No cyanosis, or edema. Moves all spontaneously. Akash bandages over wounds bilaterally that were changed 11/20. Wounds not assessed on exam today. NEUROLOGICAL: Awake, alert, and oriented x 3. Non-focal. Procedures Leg debridement 1/14 Medications and IVs Current Medications Medications (Trade) Dose Ordered Sig/Katelyn Route Start Time Stop Time Status Last Admin (KlonoPIN) 1 mg DAILY PO 11/19/17 09:00 11/21/17 08:58 (Dolophine) 20 mg TID PO 11/19/17 09:00 11/21/17 15:51 (Deltasone) 20 mg DAILY PO 11/19/17 09:00 11/21/17 08:57 (Tylenol) 650 mg Q4H PRN PO 11/18/17 19:15 (Zofran Inj) 4 mg Q6H PRN IVP 11/18/17 19:15 (Lovenox Inj) 40 mg Q24H SQ 11/18/17 20:00 Future hold 11/18/17 21:34 (Narcan Inj) 0.4 mg UNSCH PRN IV PUSH 11/18/17 19:15 (Deanna-Colace) 1 tab BID PO 11/18/17 21:00 11/19/17 20:35 ([place] 7.5-325 Mg) 1 tab Q4H PRN PO 11/18/17 19:15 11/21/17 15:50 (Toradol Inj) 30 mg Q6H PRN IVP 11/18/17 19:15 11/23/17 19:14 (Apresoline) 10 mg Q6HR PRN PO 11/18/17 19:30 (Dolophine) 20 mg DAILY PRN PO 11/19/17 08:45 11/21/17 02:02 (Prinivil) 20 mg DAILY PO 11/20/17 10:15 11/21/17 08:58 Cefazolin Sodium/ Dextrose 50 ml @ 100 mls/hr Q8H IV 11/20/17 18:00 11/21/17 08:58 (Benadryl) 25 mg Q8HR PRN PO 11/21/17 09:00 (Cristian Barrera MD R1) Urinary Catheter: No (Cristian Barrera MD R1) A/P Assessment and Plan 56 year old male presents with acute on chronic bilateral lower extremity cellulitis, worse on the left. He will be admitted for management with IV antibiotics, fluids and pain control. Podiatry has been consulted to assist with management and has performed debridement. 11/21: Improving clinically, DC IVF due to PO intake and Cr wnl. Blood cx NGTD ( 3 days). Podiatry has signed off. ID to see again today and assess readiness for dc. -Met sepsis criteria on admission with a pulse of 107 and elevated WBC of 13.4; Pt HR stable, WBC resolved -Sepsis workup initiated: Negative chest x-ray, urinalysis not indicative of infection -ID consulted for abx management -Blood cultures pending, expect wound cultures from debrided specimen -Vancomycin 1750 mg every 12 hours IV, pharmacy to assist with dosing -Zosyn 4.5 mg IV every 6 hours - ID discontinued clindamycin 600 mg IV every 8 hours on 11/19 -Pain management with [place] and Dilaudid 1 mg IV for breakthrough pain, Toradol 30 mg every 6 hours IV when necessary for inflammation -Zofran for nausea/vomiting as needed -Podiatry consult -Wound care consult -Ultrasound of right lower extremity - no evidence of deep vein thrombosis -Extent of cellulitis marked for progression/regression -Will continue to monitor -Neuro checks, vitals 4 hours, out of bed with assistance, monitor I's and O's Chronic Back Pain and Arthritis: -Will continue home dose of Methadone Hypertension: -Continue home dose, will monitor for changes Depression: -Continue clonazepam 1 mg by mouth daily Itching: -Start Benadryl 25mg PO q8h PRN FEN/GI: PO fluids, Monitor electrolytes daily and replete as needed. Deanna- Colace for constipation prophylaxis PPx: Lovenox 40mg subcu daily. Respiratory incentive spirometer to prevent atelectasis. Tylenol for fever Dispo: ID to reassess on 11/22. Plan to refer to wound care clinic upon DC. CM to assist with needs and assess ability to assist in wound care. Seen with Dr Quinones; cesia Gardiner Discharge Planning When cleared by ID (Cristian Barrera MD R1) Attending Attestation Patient seen and examined. Case reviewed and discussed Agree with plan of care as discussed with me and documented in the resident note. (Camila Gardiner MD) Problem List: (1) Sepsis ICD Codes: A41.9 - Sepsis, unspecified organism Status: Resolved (2) Lower extremity cellulitis ICD Codes: L03.119 - Lower extremity cellulitis Status: Acute (3) Osteoarthritis of knees, bilateral ICD Codes: M17.0 - Bilateral primary osteoarthritis of knee (4) Chronic venous stasis dermatitis ICD Codes: I87.2 - Venous insufficiency (chronic) (peripheral) (Cristian Barrera MD R1) Problem Qualifiers (1) Lower extremity cellulitis: Qualified Codes: L03.119 - Cellulitis of unspecified part of limb Cristian Barrera MD R1 Nov 21, 2017 08:40 Camila Gardiner MD Nov 28, 2017 16:46
[2017-11-21] MEDS: DOCUSATE SODIUM 50 MG/SENNA 8.6 MG TAB PO SCH ×2 (08:52→20:23)
[2017-11-21] MEDS: METHADONE HCL 10 MG TAB PO SCH ×3 (08:57→18:38)
[2017-11-21] MEDS: predniSONE 20 MG TAB PO SCH (08:57)
[2017-11-21] MEDS: clonazePAM 1 MG TAB PO SCH (08:58)
[2017-11-21] MEDS: LISINOPRIL 20 MG TAB PO SCH (08:58)
[2017-11-21] MEDS ORDERED: diphenhydrAMINE HCL 25 MG CAP PO PRN (09:00)
[2017-11-21] MEDS ORDERED: PHARMACY ORDERED LAB ONE (09:45)
[2017-11-21] MEDS: ENOXAPARIN SODIUM 40 MG/0.4 ML SYRINGE SQ SCH (20:24)
[2017-11-22] VITALS (7 sets, daily range): BP systolic 142–169; BP diastolic 68–92; PULSE 56–80; RESP 20–22; TEMP 97.8–98.5; O2SAT 92–96
[2017-11-22] MEDS: ACETAMINOPHEN/HYDROcodone 325 MG/7.5 MG TAB PO PRN ×4 (01:22→17:40)
[2017-11-22] MEDS: ceFAZolin 2 GM PREMIX 50 ML IV SCH ×2 (01:23→10:28)
[2017-11-22] MEDS: predniSONE 20 MG TAB PO SCH (08:37)
[2017-11-22] MEDS: DOCUSATE SODIUM 50 MG/SENNA 8.6 MG TAB PO SCH (08:37)
[2017-11-22] MEDS: LISINOPRIL 20 MG TAB PO SCH (08:37)
[2017-11-22] MEDS: METHADONE HCL 10 MG TAB PO SCH ×3 (08:37→17:39)
[2017-11-22] MEDS: clonazePAM 1 MG TAB PO SCH (08:37)
--- NOTE | 2017-11-22 08:45 | PD.POD ---
Subjective Pain score: 1 Remarks Doing well ready to go home feels the wraps of his legs are helping Past Med/Surg/Social History Past Medical History Cardiovascular: REPORTS HX OF: Hypertension Musculoskeletal: REPORTS HX OF: Osteoarthritis, Other musculoskeletal hx ( chronic back pain due to spinal stenosis) Past Surgical History HEENT: REPORTS HX OF: Tonsillectomy Social History Smoking Status: Never Smoker Objective Vital Signs Vital Signs Date Time Temp Pulse Resp B/P (MAP) Pulse Ox O2 Delivery O2 Flow Rate FiO2 11/22/17 04:00 97.8 62 21 169/92 (117) 96 11/22/17 03:56 64 11/22/17 00:19 67 11/22/17 00:00 98.5 69 22 163/75 (104) 93 11/21/17 20:12 65 11/21/17 20:00 98.3 66 22 145/66 (92) 93 11/21/17 19:45 Room Air 11/21/17 16:05 75 11/21/17 16:00 98.2 65 20 152/79 (103) 93 11/21/17 12:14 61 11/21/17 12:00 97.9 65 20 127/69 (88) 96 Coded Allergies: No Known Allergies (Unverified Adverse Reaction, Unknown, 11/18/17) Medications and IVs Administered Medications Medications (Trade) Dose Ordered Sig/Katelyn Route PRN Reason Start Time Stop Time Status Last Admin Dose Admin Clonazepam (KlonoPIN) 1 mg DAILY PO 11/19/17 09:00 11/22/17 08:37 Methadone HCl (Dolophine) 20 mg TID PO 11/19/17 09:00 11/22/17 08:37 Prednisone (Deltasone) 20 mg DAILY PO 11/19/17 09:00 11/22/17 08:37 Enoxaparin Sodium (Lovenox Inj) 40 mg Q24H SQ 11/18/17 20:00 Future hold 11/21/17 20:24 Senna/Docusate Sodium (Deanna-Colace) 1 tab BID PO 11/18/17 21:00 11/22/17 08:37 Acetaminophen/ Hydrocodone Bitart ([place] 7.5-325 Mg) 1 tab Q4H PRN PO PAIN SCALE 6 TO 10 11/18/17 19:15 11/22/17 08:38 Methadone HCl (Dolophine) 20 mg DAILY PRN PO PAIN GREATER THAN 7 11/19/17 08:45 11/21/17 02:02 Lisinopril (Prinivil) 20 mg DAILY PO 11/20/17 10:15 11/22/17 08:37 Cefazolin Sodium/ Dextrose 50 ml @ 100 mls/hr Q8H IV 11/20/17 18:00 11/22/17 01:23 Diphenhydramine HCl (Benadryl) 25 mg Q8HR PRN PO itching 11/21/17 09:00 11/21/17 18:37 Other Results Laboratory Tests Test 11/21/17 05:40 White Blood Count 11.6 TH/MM3 Red Blood Count 3.61 MIL/MM3 Hemoglobin 10.3 GM/DL Hematocrit 32.1 % Mean Corpuscular Volume 88.7 FL Mean Corpuscular Hemoglobin 28.6 PG Mean Corpuscular Hemoglobin Concent 32.2 % Red Cell Distribution Width 14.2 % Platelet Count 354 TH/MM3 Mean Platelet Volume 7.1 FL Neutrophils (%) (Auto) 68.5 % Lymphocytes (%) (Auto) 21.6 % Monocytes (%) (Auto) 7.2 % Eosinophils (%) (Auto) 2.0 % Basophils (%) (Auto) 0.7 % Neutrophils # (Auto) 7.9 TH/MM3 Lymphocytes # (Auto) 2.5 TH/MM3 Monocytes # (Auto) 0.8 TH/MM3 Eosinophils # (Auto) 0.2 TH/MM3 Basophils # (Auto) 0.1 TH/MM3 CBC Comment AUTO DIFF Differential Comment AUTO DIFF CONFIRMED Laboratory Tests Test 11/21/17 05:40 Blood Urea Nitrogen 11 MG/DL Creatinine 1.06 MG/DL Random Glucose 88 MG/DL Calcium Level 7.9 MG/DL Sodium Level 141 MEQ/L Potassium Level 3.9 MEQ/L Chloride Level 107 MEQ/L Carbon Dioxide Level 25.2 MEQ/L Anion Gap 9 MEQ/L Estimat Glomerular Filtration Rate 72 ML/MIN Physical Exam Remarks Vascular: Dorsalis pedis nonpalpable secondary to edema, posterior tibial nonpalpable secondary to edema. Capillary refill time within normal limits to digits 5 bilateral foot. Edema present bilateral foot and ankle. Neuro: Gross sensation intact to bilateral lower extremity. Pinpoint sensation decreased. No hyperalgesia noted to bilateral lower extremity Dermatology: Bilateral lower extremities are wrapped with compressive wrappings without any obvious signs of drainage Musculoskeletal: Tender to palpation to bilateral lower extremities at ulcer locations. No decrease in bilateral medial longitudinal arch. No gross deformities noted. Assessment & Plan A/P Bilateral venous stasis ulcers, edema New Unna boot wrappings were placed recently and do not need to be changed at this time. Patient can follow-up outpatient wound care center Leo Sotelo DPM Nov 22, 2017 08:45
[2017-11-22 08:55] LABS: AUTOMATED NEUTROPHIL # 9.8 TH/MM3 (1.8-7.7); BASOPHIL # 0.2 TH/MM3 (0-0.2); BASOPHIL % 1.4 % (0.0-2.0); EOSINOPHIL # 0.3 TH/MM3 (0-0.4); EOSINOPHIL % 2.2 % (0.0-4.0); HEMATOCRIT 33.4 % (39.0-51.0); HEMOGLOBIN 10.9 GM/DL (13.0-17.0); LYMPH % 20.7 % (9.0-44.0); LYMPHOCYTE # 2.9 TH/MM3 (1.0-4.8); MEAN CELL VOLUME 87.4 FL (80.0-100.0); MEAN CORPUSCULAR HEMOGLOBIN 28.4 PG (27.0-34.0); MEAN CORPUSCULAR HGB CONC 32.5 % (32.0-36.0); MEAN PLATELET VOLUME 6.9 FL (7.0-11.0); MONOCYTE # 0.9 TH/MM3 (0-0.9); NEUT % 69.7 % (16.0-70.0); PLATELET COUNT 357 TH/MM3 (150-450); RED BLOOD COUNT 3.82 MIL/MM3 (4.50-5.90); RED CELL DISTRIBUTION WIDTH 14.8 % (11.6-17.2); WHITE BLOOD COUNT 14.1 TH/MM3 (4.0-11.0)
[2017-11-22 09:32] LABS: BANDS 2 % (0-6); LYMPHOCYTES 19 % (9-44); MONOCYTES 6 % (0-8); MYELOCYTES 1 % (0-0); NEUTROPHIL # MANUAL DIFF 10.4 TH/MM3 (1.8-7.7); POLYS (SEG NEUTROPHILS) 71 % (16-70)
--- NOTE | 2017-11-22 12:28 | HHI.IDPN ---
Subjective Subjective Remarks Mr. Longoria is a 56-year-old morbidly obese male with past medical history significant for hypertension, chronic venous stasis in his bilateral lower extremities, osteoarthritis. Patient presents to [place] ED for evaluation of chronic bilateral lower extremity cellulitis. Patient states in the last 1 week his leg started hurting to the point where he could hardly get up from the couch and his home to use the bathroom. His PCP is Dr. Forrester saw him last patient reports excruciating sharp burning in stabbing pain in 10 out of 10. He took some left over antibiotics from a friend but that did not help. He came to the ED due to excruciating pain. He reports no history of diabetes. He has not followed up with wound care due to financial issues. He denies any fever or chills. He reports losing from bilateral lower eczema the ulcers time and again. He denies being on any chronic diuretic. He denies being on any oral suppressive antibiotic. He reports recurrent cellulitis bilateral lower extremity. Infectious disease is consulted for evaluation and management of bilateral lower extremity infected ulcers and cellulitis. Overnight events reviewed No fevers No rash No diarrhea Patient removed his unaboots. Antibiotics Ancef IV Lines Line sites with no e.o infection Past Medical History reviewed Allergies: Coded Allergies: No Known Allergies (Unverified Adverse Reaction, Unknown, 11/18/17) Objective . Vital Signs Date Time Temp Pulse Resp B/P (MAP) Pulse Ox O2 Delivery O2 Flow Rate FiO2 11/22/17 08:00 97.8 64 20 153/81 (105) 95 11/22/17 04:00 97.8 62 21 169/92 (117) 96 11/22/17 03:56 64 11/22/17 00:19 67 11/22/17 00:00 98.5 69 22 163/75 (104) 93 11/21/17 20:12 65 11/21/17 20:00 98.3 66 22 145/66 (92) 93 11/21/17 19:45 Room Air 11/21/17 16:05 75 11/21/17 16:00 98.2 65 20 152/79 (103) 93 . Laboratory Tests Test 11/21/17 05:40 11/22/17 08:40 White Blood Count 11.6 TH/MM3 14.1 TH/MM3 Red Blood Count 3.61 MIL/MM3 3.82 MIL/MM3 Hemoglobin 10.3 GM/DL 10.9 GM/DL Hematocrit 32.1 % 33.4 % Mean Corpuscular Volume 88.7 FL 87.4 FL Mean Corpuscular Hemoglobin 28.6 PG 28.4 PG Mean Corpuscular Hemoglobin Concent 32.2 % 32.5 % Red Cell Distribution Width 14.2 % 14.8 % Platelet Count 354 TH/MM3 357 TH/MM3 Mean Platelet Volume 7.1 FL 6.9 FL Neutrophils (%) (Auto) 68.5 % 69.7 % Lymphocytes (%) (Auto) 21.6 % 20.7 % Monocytes (%) (Auto) 7.2 % 6.0 % Eosinophils (%) (Auto) 2.0 % 2.2 % Basophils (%) (Auto) 0.7 % 1.4 % Neutrophils # (Auto) 7.9 TH/MM3 9.8 TH/MM3 Lymphocytes # (Auto) 2.5 TH/MM3 2.9 TH/MM3 Monocytes # (Auto) 0.8 TH/MM3 0.9 TH/MM3 Eosinophils # (Auto) 0.2 TH/MM3 0.3 TH/MM3 Basophils # (Auto) 0.1 TH/MM3 0.2 TH/MM3 CBC Comment AUTO DIFF AUTO DIFF Differential Comment AUTO DIFF CONFIRMED FINAL DIFF MANUAL Differential Total Cells Counted 100 Neutrophils % (Manual) 71 % Band Neutrophils % 2 % Lymphocytes % 19 % Monocytes % 6 % Eosinophils % 1 % Neutrophils # (Manual) 10.4 TH/MM3 Myelocytes 1 % Platelet Estimate NORMAL Platelet Morphology Comment NORMAL Laboratory Tests Test 11/21/17 05:40 Blood Urea Nitrogen 11 MG/DL Creatinine 1.06 MG/DL Random Glucose 88 MG/DL Calcium Level 7.9 MG/DL Sodium Level 141 MEQ/L Potassium Level 3.9 MEQ/L Chloride Level 107 MEQ/L Carbon Dioxide Level 25.2 MEQ/L Anion Gap 9 MEQ/L Estimat Glomerular Filtration Rate 72 ML/MIN Imaging Last Impressions Lower Extremity Ultrasound 11/18/17 1500 Signed Impressions: Service Date/Time: Saturday, November 18, 2017 15:34 - CONCLUSION: Unremarkable exam with no evidence of deep venous spondylosis. Sahil Sanchez MD Chest X-Ray 11/18/17 1500 Signed Impressions: Service Date/Time: Saturday, November 18, 2017 15:07 - CONCLUSION: No acute disease. Sahil Sanchez MD Physical Exam GENERAL: This is a well-nourished, well-developed patient, in no apparent distress. SKIN: No rashes, ecchymoses or lesions. Cool and dry. HEAD: Atraumatic. Normocephalic. No temporal or scalp tenderness. EYES: Pupils equal round and reactive. Extraocular motions intact. No scleral icterus. No injection or drainage. ENT: Nose without bleeding, purulent drainage or septal hematoma. Throat without erythema, tonsillar hypertrophy or exudate. Uvula midline. Airway patent. NECK: Trachea midline. Supple, nontender, no meningeal signs. CARDIOVASCULAR: Regular rate and rhythm without murmurs. RESPIRATORY: Clear to auscultation. Breath sounds equal bilaterally. No wheezes , rales, or rhonchi. GASTROINTESTINAL: Abdomen soft, non-tender, nondistended. Obese. MUSCULOSKELETAL: Bilateral LE with chronic skin changes. On LLE erythema as well as close to the knee appears fading. Pt reports erythema and swelling remarkably improved since admission. NEUROLOGICAL: Awake and alert. No obvious focal deficit. Psych cooperative IV line sites with no e.o infection. Assessment & Plan Remarks Bilateral lower extremity infected ulcers and cellulitis Chronic venous stasis possible lymphedema Morbid obesity BMI of 55.5 KG per meter square. Recurrent cellulitis Recs: Continue Ancef IV Discharge on oral keflex for 7 more days. 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 d/w : wound care clinic, supplies for dressing on discharge and Keflex script to be written. Will sign off please call back if any change in clinical condition or questions. Shanae Serrato MD Nov 22, 2017 12:28
[2017-11-22] MEDS ORDERED: CEPH-460 PO (12:47)
--- NOTE | 2017-11-22 12:48 | HHI.DCPOC ---
Discharge Care Plan Diagnosis: (1) Lower extremity cellulitis (2) Chronic venous stasis dermatitis (3) Osteoarthritis of knees, bilateral (4) Sepsis Goals to Promote Your Health * To prevent worsening of your condition and complications * To maintain your health at the optimal level Directions to Meet Your Goals Take your medications as prescribed Follow your dietary instruction Follow activity as directed Keep your appointments as scheduled Take your immunizations and boosters as scheduled If your symptoms worsen call your PCP, if no PCP go to Urgent Care Center or Emergency Room Smoking is Dangerous to Your Health. Avoid second hand smoke Call the 24-hour hour crisis hotline for domestic abuse at Shannon Quinones MD R2 Nov 22, 2017 12:48
--- NOTE | 2017-11-22 13:00 | HHI.FPPN ---
Subjective Remarks Mr. Allen is doing much better today. His pain is much better controlled. He feels like his legs have improved. He is excited to go home. (Shannon Quinones MD R2) Objective Vitals Vital Signs Date Time Temp Pulse Resp B/P (MAP) Pulse Ox O2 Delivery O2 Flow Rate FiO2 11/22/17 08:00 97.8 64 20 153/81 (105) 95 11/22/17 08:00 56 11/22/17 04:00 97.8 62 21 169/92 (117) 96 11/22/17 03:56 64 11/22/17 00:19 67 11/22/17 00:00 98.5 69 22 163/75 (104) 93 11/21/17 20:12 65 11/21/17 20:00 98.3 66 22 145/66 (92) 93 11/21/17 19:45 Room Air 11/21/17 16:05 75 11/21/17 16:00 98.2 65 20 152/79 (103) 93 I/O 11/21/17 11/21/17 11/21/17 11/22/17 11/22/17 11/22/17 07:00 15:00 23:00 07:00 15:00 23:00 Intake Total 480 ml 255 ml Output Total 700 ml Balance 480 ml -445 ml Intake Oral 480 ml 200 ml IV Total 55 ml Output Urine Total 700 ml # Voids 4 # Bowel Movements 2 1 (Shannon Quinones MD R2) Result Diagram: 11/22/17 0840 11/21/17 0540 Objective Remarks GENERAL: Well-nourished, well-developed morbidly obese patient lying in bed. SKIN: Warm and dry. No rash but has a 1.5 cm verrucous growth on his right nasolabial fold. HEAD: Normocephalic. Atraumatic. EYES: No scleral icterus. No injection or drainage. EOMI. NECK: Supple,. No JVD or lymphadenopathy. CARDIOVASCULAR: Regular rate and rhythm without murmur, gallop, or rub. RESPIRATORY: Breath sounds distant but equal bilaterally. No accessory muscle use. GASTROINTESTINAL: Abdomen soft, non-tender, morbidly obese. No guarding. Normal BS. EXTREMITIES: Chronic venous stasis changes of bilateral lower extremities. Erythema and swelling of left lower extremity much improved compared to admission NEUROLOGICAL: Awake, alert, and oriented x 3. Non-focal. Procedures Leg debridement 11/19 (Shannon Quinones MD R2) A/P Assessment and Plan 56 year old male presents with acute on chronic bilateral lower extremity cellulitis, worse on the left. He was admitted for management with IV antibiotics, fluids and pain control. Podiatry was consulted to assist with management and performed a bedside debridement. Recommendations made for dressing changes and Unna boot. -Met sepsis criteria on admission with a pulse of 107 and elevated WBC of 13.4 -Sepsis workup initiated: Negative chest x-ray, urinalysis not indicative of infection -ID consulted for abx management - was on cefazolin IV, plan to discharge home on Keflex by mouth 7 days -Blood cultures show no growth in 4 days -Pain management with [place] and Dilaudid 1 mg IV for breakthrough pain, Toradol 30 mg every 6 hours IV when necessary for inflammation -Zofran for nausea/vomiting as needed -Podiatry on board -Will continue to monitor -Neuro checks, vitals 4 hours, out of bed with assistance, monitor I's and O's Chronic Back Pain and Arthritis: -Continue home dose of Methadone Hypertension: -Continue home dose, will monitor for changes Depression: -Continue clonazepam 1 mg by mouth daily Itching: -Continue Benadryl 25mg PO q8h PRN FEN/GI: PO fluids, Monitor electrolytes daily and replete as needed. Deanna- Colace for constipation prophylaxis PPx: Lovenox 40mg subcu daily. Respiratory incentive spirometer to prevent atelectasis. Tylenol for fever Dispo: Plan to refer to wound care clinic upon DC. CM to assist with needs and establish and with [facility] clinic Seen with Dr Barrera; cesia Gardiner Discharge Planning Plan to discharge home today with oral antibiotics for 7 days per ID recommendations. Patient will follow-up with podiatry and wound care clinic. (Shannon Quinones MD R2) Attending Attestation Patient seen and examined. Case reviewed and discussed Agree with plan of care as discussed with me and documented in the resident note. (Camila Gardiner MD) Problem List: (1) Sepsis ICD Codes: A41.9 - Sepsis, unspecified organism Status: Resolved (2) Lower extremity cellulitis ICD Codes: L03.119 - Lower extremity cellulitis Status: Acute (3) Osteoarthritis of knees, bilateral ICD Codes: M17.0 - Bilateral primary osteoarthritis of knee (4) Chronic venous stasis dermatitis ICD Codes: I87.2 - Venous insufficiency (chronic) (peripheral) (Shannon Quinones MD R2) Problem Qualifiers (1) Lower extremity cellulitis: Qualified Codes: L03.119 - Cellulitis of unspecified part of limb Shannon Quinones MD R2 Nov 22, 2017 13:00 Camila Gardiner MD Nov 28, 2017 16:46
--- NOTE | 2017-11-22 13:12 | HHI.DS ---
Discharge Summary Admission Date Nov 18, 2017 at 17:20 Discharge Date: Nov 22, 2017 Admitting Diagnosis left leg cellulitis/sepsis (1) Sepsis Diagnosis: Principal ICD Codes: A41.9 - Sepsis, unspecified organism Status: Resolved (2) Lower extremity cellulitis Diagnosis: Principal ICD Codes: L03.119 - Lower extremity cellulitis Status: Acute (3) Osteoarthritis of knees, bilateral Diagnosis: Secondary ICD Codes: M17.0 - Bilateral primary osteoarthritis of knee (4) Chronic venous stasis dermatitis Diagnosis: Secondary ICD Codes: I87.2 - Venous insufficiency (chronic) (peripheral) Procedures Leg debridement 11/19 Brief History Patient is a 56 year old male with a past medical history of hypertension, chronic venous stasis in his lower extremities, and knee osteoarthritis that presents to the [place] ED for evaluation of chronic bilateral lower extremity cellulitis. Patient states that in the last 1 week, his leg started hurting to the point that he could hardly get up from the couch to use the bathroom. His PCP is Dr. Forrester who he last saw last month. At that time, he was told to apply Neosporin with dressing changes twice a day which did not improve the pain or swelling in his legs. He is experiencing excruciating sharp, burning, and sitting in pain that he rates 10/10. He even took antibiotics that a friend had left over from a previous skin infection but that did not help. He came into the ED to be evaluated because he could not bear the pain any longer. He does not have a history of diabetes. His insurance did not approve follow-up with the wound care clinic. CBC/BMP: 11/22/17 0840 11/21/17 0540 Significant Findings Laboratory Tests Test 11/19/17 17:16 11/20/17 01:30 11/20/17 06:45 11/21/17 05:40 Vancomycin Level Trough 21.9 MCG/ML (5.0-10.0) Red Blood Count 3.61 MIL/MM3 (4.50-5.90) 3.61 MIL/MM3 (4.50-5.90) Hemoglobin 10.4 GM/DL (13.0-17.0) 10.3 GM/DL (13.0-17.0) Hematocrit 31.6 % (39.0-51.0) 32.1 % (39.0-51.0) Metamyelocytes 2 % (0-1) Total Protein 6.0 GM/DL (6.4-8.2) Albumin 2.4 GM/DL (3.4-5.0) Calcium Level 8.2 MG/DL (8.5-10.1) 7.9 MG/DL (8.5-10.1) Aspartate Amino Transf (AST/SGOT) 10 U/L (15-37) Estimat Glomerular Filtration Rate 66 ML/MIN (>89) 72 ML/MIN (>89) White Blood Count 11.6 TH/MM3 (4.0-11.0) Neutrophils # (Auto) 7.9 TH/MM3 (1.8-7.7) Test 11/22/17 08:40 White Blood Count 14.1 TH/MM3 (4.0-11.0) Red Blood Count 3.82 MIL/MM3 (4.50-5.90) Hemoglobin 10.9 GM/DL (13.0-17.0) Hematocrit 33.4 % (39.0-51.0) Mean Platelet Volume 6.9 FL (7.0-11.0) Neutrophils # (Auto) 9.8 TH/MM3 (1.8-7.7) Neutrophils % (Manual) 71 % (16-70) Neutrophils # (Manual) 10.4 TH/MM3 (1.8-7.7) Myelocytes 1 % (0-0) PE at Discharge GENERAL: Well-nourished, well-developed morbidly obese patient lying in bed. SKIN: Warm and dry. No rash but has a 1.5 cm verrucous growth on his right nasolabial fold. HEAD: Normocephalic. Atraumatic. EYES: No scleral icterus. No injection or drainage. EOMI. NECK: Supple,. No JVD or lymphadenopathy. CARDIOVASCULAR: Regular rate and rhythm without murmur, gallop, or rub. RESPIRATORY: Breath sounds distant but equal bilaterally. No accessory muscle use. GASTROINTESTINAL: Abdomen soft, non-tender, morbidly obese. No guarding. Normal BS. EXTREMITIES: Chronic venous stasis changes of bilateral lower extremities. Erythema and swelling of left lower extremity much improved compared to admission NEUROLOGICAL: Awake, alert, and oriented x 3. Non-focal. Hospital Course 56 year old male presents with acute on chronic bilateral lower extremity cellulitis, worse on the left. He was admitted for management with IV antibiotics, fluids and pain control. Podiatry was consulted to assist with management and performed a bedside debridement on 11/19/2017. Recommendations were made for dressing changes including an Unna boot and he saw much improvement in the pain and swelling of his left lower extremity. He was discharged home with home health wound care. He is to follow-up with podiatry and the [place] wound care clinic. He was prescribed a 7 day course of Keflex 500 mg 4 times a day. Pt Condition on Discharge: Stable Discharge Disposition: Discharge Home Discharge Instructions DIET: Follow Instructions for: As Tolerated, No Restrictions Activities you can perform: Weight Bearing as Maxine Follow up Referrals: Appointment for Follow Up @ [facility] - 1 Week with Yenny Power [facility] - 2-3 Days New Medications: Cephalexin (Keflex) 500 Mg Capsule 500 MG PO Q6H for Infection, #28 CAP 0 Refills Continued Medications: Clonazepam (Klonopin) 1 Mg Tab 1 MG PO DAILY, #60 TAB 0 Refills Lisinopril (Lisinopril) 20 Mg Tab 20 MG PO DAILY, #30 TAB 0 Refills Methadone (Methadone) 10 Mg Tab 20 MG PO TID, TAB 0 Refills Prednisone (Prednisone) 20 Mg Tab 20 MG PO DAILY, TAB 0 Refills Shannon Quinones MD R2 Nov 22, 2017 13:12
--- NOTE | 2017-11-22 15:10 | HHI.FF ---
Face to Face Verification Diagnosis: (1) Lower extremity cellulitis Home Health Nursing Order: Medical education Signs/symptoms of disease process Medication education-adverse effect Wound care and dressing changes (dressing changes will be complex and wound care has already assessed that pt will not be able to accomplish this on his own ) Nursing assessment with vital signs Instructions: Pt dressing is complex requiring home health wound care in addition to weekly visit to wound care clinic I have seen patient Mauro Sánchez Longoria on 11/22/17. My clinical findings support the need for the requested home health care services because: the wound dressings have been assessed by wound care to be beyond the pt's ability to perform on his own. Also, due to his body habitus, he would be unable to perform dressing changes required to ensure clinic improvement to clear the infection. Ltd mobility - disease progression Limited ability to care for self Need for psychosocial assistance Infection w/ risk of complications I certify that my clinical findings support that this patient is homebound because: as above Impaired cognitive ability/safety Unsteady gait/balance Need for psychosocial assistance Cristian Barrera MD R1 Nov 22, 2017 15:10
--- NOTE | 2017-11-22 16:32 | PD.WCN.NOT ---
Wound Consult Description: Patient seen for follow up of dressing changes to bilateral lower extremities Communicated with: FELIX Angelo,and Doctor Barrera, Call placed to Doctor Power for orders, Recommendation: Please Cleanse wounds to bilateral lower extremities with wound cleanser or normal saline and pat dry.Apply Optifoam AG gentle over open ulcerations to L lateral leg and R lateral leg. Cover skin tear to L medial lower leg with Optilock.Secure all dressing with rolled gauze and Akash wrap. Change dressings every 3 days or PRN if saturated or dislodged. Until seen by podiatry and PCP for out patient wound care referral. Additional Information: Patient seen on for UNNA boot dressing change.Spoke with Gi charge nurse on , patient is to be discharged today with no C for UNNA boot dressing changes. Wound care clinic referral needs to be received through PCP per case management. Patient has orders to follow up with Doctor Power next week. Unna boot dressings need to be changed on Monday of next week. Call placed to Doctor Power's office for clarification of orders. Will hold off on applying unna boots, until clarification of orders. Dressings were removed earlier today by nurse . Patient states, "I was walking in the room to the bathroom and I bumped my leg on the door jam or my crutches and tore the skin on my leg." Patient is noted with new skin tear to L medial lower extremity." Cleansed wounds on L lateral and R lateral lower extremities with wound cleanser and applied Optfioam AG gentle border. Cleansed skin tear with wound cleanser and approximated skin flap back over wound bed. Covered wound with Optilock all dressings were secured with rolled gauze and tape.Please clarify orders with Doctor Power before discharging patient home. Lakeisha Izquierdo [facility] Nov 22, 2017 16:32
== END 2017-11-22 18:00 | disposition home or self-care (01) | DRG 872 ==
LOC: NEPE 14:26 → NEDA 17:20 → N04A 19:49
PROVIDERS: ADMIT Family Medicine; ATTEND Family Medicine
DX: A41.9 Sepsis, unspecified organism (principal); Z68.43 Body mass index [BMI] 50.0-59.9, adult; L03.116 Cellulitis of left lower limb; L03.115 Cellulitis of right lower limb; I73.9 Peripheral vascular disease, unspecified; I10 Essential (primary) hypertension; E66.01 Morbid (severe) obesity due to excess calories; I83.018 Varicose veins of right lower extremity with ulcer other part of lower leg; I83.028 Varicose veins of left lower extremity with ulcer other part of lower leg; M48.00 Spinal stenosis, site unspecified; M17.0 Bilateral primary osteoarthritis of knee; F17.220 Nicotine dependence, chewing tobacco, uncomplicated; G89.29 Other chronic pain; M54.9 Dorsalgia, unspecified; F32.9 Major depressive disorder, single episode, unspecified; Z59.9 Problem related to housing and economic circumstances, unspecified; L30.9 Dermatitis, unspecified; Z82.5 Family history of asthma and other chronic lower respiratory diseases; Z79.891 Long term (current) use of opiate analgesic; Z79.52 Long term (current) use of systemic steroids
CPT/HCPCS: 71045; 80048; 80053; 80202; 80307; 81001; 82550; 82552; 83605; 83735; 83880; 84100; 84132; 84484; 85007; 85025; 85027; 85610; 85652; 85730; 86140; 87040; 93005; 93970; 94150; J0690; J1170; J1650; J2543; J3370; J7030; J7040; J7050; J7512